=== PATIENT | male | born 1950 | race American Indian/Alaskan Native ===

== ENCOUNTER 2018-07-22 10:50 | Inpatient (IN) | payer MEDICARE ==
[2018-07-22] MEDS ORDERED: Sodium Chloride 0.9% 2,000 ML IV STA (11:13)
[2018-07-22] MEDS ORDERED: Morphine 4 mg/ml ISec IVP STA ×2 (11:14→13:00)
--- NOTE | 2018-07-22 11:27 | ED PDOC ---
Arrival/HPI - General Chief Complaint: Lower Extremity Problem/Injury Time Seen by Provider: 07/22/18 11:05 Historian: Patient - History of Present Illness Narrative History of Present Illness (Text): 07/22/18 11:05 Leonides Franks is a 67 year old male, with a past medical history of DM, HTN, Hyperlipidemia, factor V leiden (noncompliant w/ anticoagulants), DVT, and PE, who presents to the emergency department complaining of bilateral leg pain to the back of the upper thighs since 3 days. Pt describes pain as crampy. Patient informs pain worsened today and appreciates one episode of vomiting. Patient reports taking 100 mg of viagra on which he believes triggered leg pain. Patient denies fall, trauma, shortness of breath, chest pain, abdominal pain, diarrhea, dysuria, hematuria, scrotal pain, back pain, focal weakness, sensory deficits, or any other complaints. Time/Duration: < week (3 days) Symptom Onset: Sudden Symptom Course: Unchanged Activities at Onset: Light Context: Home Past Medical History - Provider Review Nursing Documentation Reviewed: Yes - Infectious Disease Hx of Infectious Diseases: None - Cardiac Hx Cardiac Disorders: Yes Hx Hypertension: Yes - Pulmonary Hx Respiratory Disorders: Yes - Neurological Hx Neurological Disorder: No - HEENT Hx HEENT Disorder: No - Renal Hx Renal Disorder: No - Endocrine/Metabolic Hx Diabetes Mellitus Type 2: Yes - Hematological/Oncological Hx Blood Disorders: No - Integumentary Hx Dermatological Disorder: No - Musculoskeletal/Rheumatological Hx Musculoskeletal Disorders: No Hx Falls: No - Gastrointestinal Hx Gastrointestinal Disorders: Yes Other/Comment: left groin hernia - Genitourinary/Gynecological Hx Genitourinary Disorders: No - Psychiatric Hx Psychophysiologic Disorder: No Hx Emotional Abuse: No Hx Physical Abuse: No Hx Substance Use: No - Surgical History Other/Comment: left groin hernia repair; sheldon filter for dvt - Anesthesia Hx Anesthesia Reactions: No Hx Malignant Hyperthermia: No - Suicidal Assessment Feels Threatened In Home Enviroment: No Family/Social History - Physician Review Nursing Documentation Reviewed: Yes Family/Social History: Other (factor 5) Smoking Status: Current Some Days Smoker Hx Alcohol Use: No Hx Substance Use: No Allergies/Home Meds Allergies/Adverse Reactions: Allergies No Known Allergies Allergy (Verified 03/15/16 18:10) Home Medications: Home Meds Medication Instructions Recorded Confirmed amLODIPine [Norvasc] 10 mg PO DAILY 12/29/15 07/22/18 metFORMIN [glucOPHAGE] 750 mg PO BID 12/29/15 07/22/18 Atorvastatin [Lipitor] 10 mg PO DIN 07/22/18 07/22/18 GlipiZIDE [Glipizide] 5 mg PO HS 07/22/18 07/22/18 Review of Systems - Review of Systems Eyes: absent: Vision Changes ENT: absent: Hearing Changes Respiratory: absent: SOB Cardiovascular: Calf Pain. absent: Chest Pain, Palpitations Gastrointestinal: absent: Abdominal Pain, Constipation, Diarrhea Genitourinary Male: absent: Dysuria, Hematuria, Other (no scrotal pain) Musculoskeletal: Myalgias (bilateral lower extremity pain to the back of upper thighs, described as "crampy"). absent: Back Pain, Neck Pain, Other (fall/trauma) Neurological: absent: Focal Weakness, Other (no weakness, numbness, or tingling) Physical Exam Temperature: Afebrile Blood Pressure: Normal Pulse: Regular Respiratory Rate: Normal Appearance: Positive for: Well-Appearing, Non-Toxic, Comfortable Pain Distress: None Mental Status: Positive for: Alert and Oriented X 3 - Systems Exam Head: Present: Atraumatic, Normocephalic Pupils: Present: PERRL Extroacular Muscles: Present: EOMI Conjunctiva: Present: Normal Mouth: Present: Moist Mucous Membranes Neck: Present: Normal Range of Motion Respiratory/Chest: Present: Clear to Auscultation, Good Air Exchange. No: Respiratory Distress, Accessory Muscle Use, Wheezes, Rales, Rhonchi Cardiovascular: Present: Regular Rate and Rhythm, Normal S1, S2. No: Murmurs, Rub, Gallop Abdomen: Present: Normal Bowel Sounds. No: Tenderness, Distention, Peritoneal Signs, Rebound, Guarding Genitourinary Male: Present: Circumcised Penis, Other (penis flaccid). No: Testicle Tenderness, Testicle Swelling Back: Present: Normal Inspection Upper Extremity: Present: Normal Inspection. No: Cyanosis, Edema Lower Extremity: Present: NORMAL PULSES (distal pulses intact), Normal ROM, Tenderness (tenderness to bilateral upper thighs), Other (Strength 5/5 lower extremities). No: Edema Neurological: Present: GCS=15, CN II-XII Intact, Speech Normal Skin: Present: Warm, Dry, Normal Color. No: Rashes Psychiatric: Present: Alert, Oriented x 3, Normal Insight, Normal Concentration Medical Decision Making ED Course and Treatment: 07/22/18 11:05 Impression: Patient is a 67 year old male, with a past medical history of factor V leiden (noncompliant w/ anticoagulants), DVT, and PE, who presents to the emergency department complaining of bilateral lower extremity pain to the back of the upper thighs since 3 days. Plan: -- Labs -- Chest X-Ray -- Morphine -- IV Fluids -- Toradol -- Urinalysis -- US DUPLEX Lower Extremities -- Reassess and disposition Prior Visits: Notes and results from previous visits were reviewed. Progress Notes: 07/22/18 13:01 Cxray negative 07/22/18 13:17 EKG shows NSR at 69bpm with new t wave inversions and depressions in II,III, avf and lateral leads from comparison in 2017 Ultrasound called and reports b/l dvt from groin to calf. Heparin bolus and drip ordered. CTA ordered to r/o PE. 2L IVF hydration infusing. 07/22/18 14:30 CTA Visualized portions of the inferior thyroid gland appear unremarkable. The mediastinal and hilar vascular structures appear within normal limits. Cardiomegaly. Extensive large bilateral pulmonary emboli involving upper, lower, and middle lobe pulmonary artery branches. No central pulmonary embolus identified. No focal consolidation. No pleural effusion. No pneumothorax. No suspicious pulmonary nodules measuring greater than 5 mm. Small hiatal hernia/distal esophageal wall thickening. Limited visualized portions of the upper abdomen appear grossly unremarkable. No acute osseous abnormality is detected. Impression: Extensive bilateral pulmonary emboli as above. No central pulmonary embolus identified. 07/22/18 14:30 Patient feeling better after heparin bolus and drip and additional morphine. Patient accepted by Dr. Wallace with hematology, pulmonary and cardiology consults placed. BP improved after IV hydration. 07/22/18 14:33 - RAD Interpretation Narrative RAD Interpretations (Text): 07/22/18 13:34 US Duplex Lower Extremity shows: IMPRESSION: Extensive bilateral DVT, greater on the right than the left, as described above. The patient may benefit from a CTA of the pulmonary arteries followed by abdomen and pelvis to evaluate the IVC and iliac vessels. Radiology Orders: 07/22/18 11:13 DUPLEX LOWER EXTRM VEIN BILAT [US] Stat Preschool Director: Radiologist - Medication Orders Current Medication Orders: Sodium Chloride (Sodium Chloride 0.9%) 2,000 mls @ 999 mls/hr IV .Q2H1M STA Stop: 07/22/18 13:13 Discontinued Medications Ketorolac Tromethamine (Toradol) 30 mg IVP STAT STA Stop: 07/22/18 11:15 Morphine Sulfate (Morphine) 4 mg IVP STAT STA Stop: 07/22/18 11:15 - Scribe Statement The provider has reviewed the documentation as recorded by the Scribe Yunier Whitt All medical record entries made by the Scribe were at my direction and personally dictated by me. I have reviewed the chart and agree that the record accurately reflects my personal performance of the history, physical exam, medical decision making, and the department course for this patient. I have also personally directed, reviewed, and agree with the discharge instructions and disposition. Disposition/Present on Arrival - Present on Arrival Any Indicators Present on Arrival: No History of DVT/PE: No History of Uncontrolled Diabetes: No Urinary Catheter: No History of Decub. Ulcer: No History Surgical Site Infection Following: None - Disposition Have Diagnosis and Disposition been Completed?: Yes Diagnosis: DVT (deep venous thrombosis), Pulmonary embolism Disposition: HOSPITALIZED Disposition Time: 13:19 Patient Plan: Admission Patient Problems: Current Active Problems Problem Status Onset DVT (deep venous thrombosis) Acute Pulmonary embolism Acute Condition: FAIR Referrals: Eros Hameed MD [Primary Care Provider] - Follow up with primary Forms: [employer] (Gabonese)
[2018-07-22 12:10] LABS: BASO # 0.03 K/mm3 (0.0-2.0); BASO % 0.3 % (0.0-3.0); EOS # 0.1 (0.0-0.7); EOS % 1.4 % (1.5-5.0); HEMOGLOBIN 13.1 g/dL (14.0-18.0); LYMPH # 3.4 (1.2-3.4); LYMPH % 33.3 % (22.0-35.0); MEAN CELL VOLUME 85.1 fl (80.0-105.0); MEAN CORPUSCULAR HEMOGLOBIN 27.8 pg (25.0-35.0); MEAN CORPUSCULAR HGB CONC 32.7 g/dl (31.0-37.0); MEAN PLATELET VOLUME 9.1 fl (7.0-11.0); MONO # 0.6 (0.1-0.6); MONO % 5.5 % (1.0-6.0); RBC 4.71 10^6/uL (3.5-6.1); RED CELL DISTRIBUTION WIDTH 12.8 % (11.5-14.5); WHITE BLOOD COUNT 10.3 10^3/uL (4.5-11.0)
[2018-07-22 12:30] LABS: ALB/GLOB RATIO 1.1 (1.1-1.8); ALBUMIN 4.4 g/dL (3.0-4.8); ALT/SGPT 22 U/L (7-56); AST/SGOT 22 U/L (17-59); BLOOD UREA NITROGEN 15 mg/dL (7-21); CALCIUM 9.3 mg/dL (8.4-10.5); GFR NON-AFRICAN AMERICAN 40; LIPASE 117 U/L (23-300)
[2018-07-22 12:31] LABS: TROPONIN I < 0.01 ng/mL
[2018-07-22 12:35] LABS: INR 1.04; PARTIAL THROMBOPLASTIN TIME 39.6 Seconds (26.9-38.3); PROTHROMBIN TIME 11.7 SECONDS (9.4-12.5)
[2018-07-22] MEDS ORDERED: Heparin25000 units/250ml 1/2NS 25,000 UNITS/250 ML BAG IV PRN ×2 (12:53→13:13)
[2018-07-22] MEDS ORDERED: Iohexol 350 MG/100 ML VIAL ONE (13:05)
--- NOTE | 2018-07-22 13:05 | RAD ---
Date of service: 07/22/2018 PROCEDURE: CHEST RADIOGRAPH, 1 VIEW HISTORY: vomiting,cp, hx of dvt COMPARISON: 01/30/2017 FINDINGS: LUNGS: Clear. PLEURA: No pneumothorax or pleural fluid seen. CARDIOVASCULAR: No aortic atherosclerotic calcification present. Normal. OSSEOUS STRUCTURES: No significant abnormalities. VISUALIZED UPPER ABDOMEN: Normal. OTHER FINDINGS: None. IMPRESSION: No active disease.
[2018-07-22 13:12] VITALS: BMI 25.7
--- NOTE | 2018-07-22 13:38 | US ---
HISTORY: Leg pain and swelling. Evaluate for DVT PHYSICIAN(S): Sam Montano MD. TECHNIQUE: Duplex sonography and color-flow Doppler with graded compression were used to evaluate the deep venous systems of both lower extremities. FINDINGS: There is acute hypoechoic occlusive thrombus in the right common femoral vein, right femoral vein, and proximal right profunda femoral vein. There is partially occlusive acute thrombus in the right popliteal vein. Acute hypoechoic thrombus is noted in the visualized right tibial veins. The right external iliac vein is patent. There is partially occlusive thrombus in the left common femoral vein. Acute on chronic DVT is noted in the left femoral vein. Post phlebitic changes are noted in the left popliteal vein. The left tibial veins are not well seen. IMPRESSION: Extensive bilateral DVT, greater on the right than the left, as described above. The patient may benefit from a CTA of the pulmonary arteries followed by abdomen and pelvis to evaluate the IVC and iliac vessels.
--- NOTE | 2018-07-22 14:24 | CT ---
Date of service: 07/22/2018 CTA chest PE protocol Indication: b/l dvt, hypoxia Technique: Contiguous axial images were obtained through the chest with intravenous contrast enhancement. Sagittal and coronal reconstructions were generated and reviewed. This CT exam was performed using 1 or more of the following dose reduction techniques: Automated exposure control, adjustment of the MAA and/or kV according to patient size, and/or use of iterative reconstruction technique. IV contrast: 100 mL Omnipaque 350 IV Radiation dose (DLP): 390.62 MGy-cm. Comparison: Chest x-ray performed 07/22/18 Findings: Visualized portions of the inferior thyroid gland appear unremarkable. The mediastinal and hilar vascular structures appear within normal limits. Cardiomegaly. Extensive large bilateral pulmonary emboli involving upper, lower, and middle lobe pulmonary artery branches. No central pulmonary embolus identified. No focal consolidation. No pleural effusion. No pneumothorax. No suspicious pulmonary nodules measuring greater than 5 mm. Small hiatal hernia/distal esophageal wall thickening. Limited visualized portions of the upper abdomen appear grossly unremarkable. No acute osseous abnormality is detected. Impression: Extensive bilateral pulmonary emboli as above. No central pulmonary embolus identified. Findings discussed with Dr. Milligan on 07/22/18 at 2:14 p.m.
--- NOTE | 2018-07-22 18:23 | CARD ---
APPROVED REPORT Date of service: 07/22/2018 EKG Measurement Heart [id number] <Conclusion> Poor data quality, interpretation may be adversely affected Normal sinus rhythm ST & T wave abnormality, consider inferior ischemia Abnormal ECG
[2018-07-22 19:40] LABS: TROPONIN I 0.01 ng/mL
[2018-07-22] MEDS: Morphine 2 mg/ml ISec IVP PRN (21:51)
[2018-07-22] MEDS ORDERED: Pneumococcal 23-Valent Vaccine IM ONE (22:18)
[2018-07-22] MEDS: Insulin Reg-MEDIUM-Coverage SC SCH (22:18)
--- NOTE | 2018-07-23 01:28 | CON ---
DATE OF CONSULTATION: 07/22/2018 PULMONARY CONSULTATION REFERRING PHYSICIAN: Dr. Wallace. REASON FOR CONSULTATION: Recurrent pulmonary embolism, DVT. HISTORY OF PRESENT ILLNESS: This is a 67-year-old gentleman with a history of hypertension, diabetes, hyperlipidemia, known history of factor V Leiden, apparently stopped his anticoagulation many years ago. 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 He was started on anticoagulation, presently lying in the bed, feels better, still short of breath, but no nausea and vomiting, no diarrhea, decreased leg swelling. PAST MEDICAL HISTORY: As per history of present illness, has a history left groin hernia. ALLERGIES: NONE KNOWN. 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 Denies any alcohol use. FAMILY HISTORY: Positive for factor V deficiency. MEDICATIONS: He is on hydralazine 10 mg q.i.d. p.r.n., Ecotrin 81 mg daily, metformin 750 mg twice a day, glipizide 5 mg at bedtime, getting IV heparin weight-based protocol, Lipitor 10 mg daily, morphine 2 mg 4 hours p.r.n., Norvasc 10 mg daily. REVIEW OF SYSTEMS: No headache, no rhinitis, no cough. He has a shortness of breath at present. No chest pain. Admit to have snoring, daytime sleepy. No nausea, no vomiting, no diarrhea. Has some leg pain. PHYSICAL EXAMINATION: GENERAL: No acute distress. VITAL SIGNS: Temperature is 98, heart rate 73, respiratory rate is 18, blood pressure 134/79, pulse ox 96% room air. HEENT: Moist mucous membrane. Crowded airway. NECK: Supple. No JVD. LUNGS: Have a fair airflow. HEART: S1 and S2. ABDOMEN: Soft, nontender, no organomegaly. EXTREMITIES: There is no edema. NEUROLOGIC: Awake, alert, and follows simple commands. LABORATORY DATA: Shows hemoglobin 13.1, hematocrit 40.1, WBC 10.3, platelet is 223. His PTT 143, INR 1.04. Sodium 142, potassium 4.1, chloride 107, bicarbonate 19, BUN 15, creatinine 1.7, glucose 231, calcium 9.3, phosphorus 6, magnesium 1.9, AST 22, ALT 22, alk phos is 80. LDH is 590, total protein 8.4, albumin 4.4, globulin 4, lipase 117. CTA of the chest shows extensive bilateral pulmonary embolism, also has venous Doppler of the lower extremities done, which shows extensive bilateral DVT, greater on the right than the left. Had an EKG done, which shows normal sinus rhythm, ST-T wave abnormalities. IMPRESSION: Recurrent of pulmonary embolism and deep venous thrombosis, history of factor V Leiden deficiency, history of diabetes, hypertension, may have component of chronic lung disease, suspected sleep apnea syndrome. PLAN: Case discussed with the patient and daughter at bedside. All the questions answered. Continue heparin weight-based protocol add Protonix 40 mg daily, inhaled bronchodilator, as the patient stopped smoking. Spoke about high risk for thromboembolic disease, need to take anticoagulation lifelong unless there is a big contraindication, out of bed to chair. We will get cardiac exam and also we will get echo to assess the RV function. Thank you and we will follow with you. Janeth Langley MD
--- NOTE | 2018-07-23 02:05 | CON ---
DATE: 07/22/2018 CONSULT SERVICE: Cardiology. REASON FOR CONSULTATION AND FOLLOWUP: Acute PE, history of DVT in the past, cardiac evaluation, and abnormal EKG. BRIEF CLINICAL HISTORY: This is a 67-year-old male, very noncompliant to the medications, came in with complaint of bilateral leg pain and swelling. Past history significant for diabetes, hypertension, hyperlipidemia, factor V Leiden deficiency, and history of DVT/PE. The patient underwent CT angiogram with extensive bilateral PE, so Cardiology consult was called. The patient denies any chest pain, shortness of breath, or any palpitations. PAST MEDICAL HISTORY: Significant for hematologic abnormality, factor V Leiden deficiency, history of DVT/PE in the past, history of hypertension, hyperlipidemia, obesity, and history of pulmonary embolism in 2010. CURRENT MEDICATIONS: The patient is supposed to take at home; amlodipine, atorvastatin, and metformin. SOCIAL HISTORY: Denies any smoking. Denies any history of alcohol abuse. PAST SURGICAL HISTORY: History of a [place] filter placed in the past, significant for DVT, history of left groin hernia repair in the past, questionable history of fracture in 2010. REVIEW OF SYSTEMS: As per HPI. PHYSICAL EXAMINATION: GENERAL: Height of the patient 5 feet 11 inches, weight of the patient 185 pounds, and body mass index 25.8 kg/m2. VITAL SIGNS: Temperature afebrile, heart rate 70, and blood pressure 134/79. HEENT: PERRLA. Extraocular muscles intact. NECK: Supple. No carotid bruits or thyromegaly. CHEST: Clear to auscultation. HEART: S1 and S2 regular. ABDOMEN: Soft. EXTREMITIES: Clubbing and cyanosis negative. LABORATORY DATA: WBC 10.3, hemoglobin 13.1, hematocrit 40.1, and platelet count 223. Chemistry shows sodium 142, potassium 4.1, chloride 107, bicarb 19, anion gap of 20, BUN 15, and creatinine 1.7. Random sugar 369. IMPRESSION: A 67-year-old male with a past medical history of diabetes, hypertension, hyperlipidemia, noncompliance with medications, history of deep venous thrombosis and pulmonary embolism in the past in 2010, factor V Leiden deficiency admitted with leg swelling, found to be acute pulmonary embolism. Ultrasound of the bilateral lower extremity shows extensive deep venous thrombosis greater in the right than the left as well as on the patient's CT angiogram. RECOMMENDATIONS: Start anticoagulation with heparin tomorrow. We will start Eliquis. Echo to assess LV function. Further recommendations depending upon the hospital course. Admitting EKG shows normal sinus, ST-T abnormality, it could be a LV with a strain pattern. So far, troponin remains negative. Follow serial CPK, troponin. Continue anticoagulation. Lipid profile, TSH, and hemoglobin A1c. The patient may get troponin positive because of RV strain with extensive DVT. We will follow with you. Thank you Dr. Wallace for providing us the opportunity in taking care of the patient, Leonides Franks. Janeth Connolly MD
[2018-07-23 02:26] LABS: URINE BILIRUBIN NEGATIVE (NEGATIVE); URINE BLOOD LARGE (NEGATIVE); URINE GLUCOSE (UA) NEGATIVE (NEGATIVE); URINE LEUKOCYTE ESTERASE NEGATIVE Leu/uL (NEGATIVE); URINE PROTEIN 30 mg/dL (<30 mg/dL); URINE UROBILINOGEN 0.2 E.U./dL (<1 E.U./dL)
[2018-07-23 02:29] LABS: URINE APPEARANCE SL CLOUDY (CLEAR); URINE COLOR YELLOW (YELLOW)
[2018-07-23 03:04] LABS: URINE BACTERIA SMALL /hpf; URINE EPITHELIAL CELLS 0 - 2 /hpf (0-5)
[2018-07-23 03:05] LABS: URINE AMORPHOUS SEDIMENT MODERATE /hpf; URINE WBC 0 - 2 /hpf (0-6)
[2018-07-23] MEDS: Insulin Reg-LOW-Coverage SC SCH ×4 (07:30→22:53)
[2018-07-23] MEDS: Arformoterol 15 mcg/2 ml Inh Sol IH SCH ×2 (07:41→19:38)
[2018-07-23] MEDS: Budesonide 0.5 mg/2 ml Inhal Susp UD IH SCH ×2 (07:41→19:38)
[2018-07-23 07:44] LABS: BASO # 0.03 K/mm3 (0.0-2.0); BASO % 0.3 % (0.0-3.0); EOS # 0.1 (0.0-0.7); EOS % 0.5 % (1.5-5.0); HEMOGLOBIN 11.2 g/dL (14.0-18.0); LYMPH # 3.2 (1.2-3.4); LYMPH % 32.1 % (22.0-35.0); MEAN CELL VOLUME 82.8 fl (80.0-105.0); MEAN CORPUSCULAR HEMOGLOBIN 26.8 pg (25.0-35.0); MEAN CORPUSCULAR HGB CONC 32.4 g/dl (31.0-37.0); MEAN PLATELET VOLUME 8.8 fl (7.0-11.0); MONO # 0.6 (0.1-0.6); MONO % 6.3 % (1.0-6.0); RBC 4.18 10^6/uL (3.5-6.1); WHITE BLOOD COUNT 9.9 10^3/uL (4.5-11.0)
[2018-07-23 08:05] LABS: TROPONIN I 0.02 ng/mL
[2018-07-23 08:09] LABS: CALCIUM 8.7 mg/dL (8.4-10.5)
[2018-07-23 09:18] LABS: CK-MB 1.1 ng/mL (0.0-3.6)
[2018-07-23] MEDS ORDERED: Sodium Chloride 0.9% 1,000 ML IV SCH (09:30)
--- NOTE | 2018-07-23 11:48 | CP.PCM.CON ---
History of Present Illness - History of Present Illness History of Present Illness: Nephrology Consultation Note: Assessment: Critical Acute DVT/PE non-olguric Acute Kidney Injury (N17.9) likely due to contrast nephropathy and hemodynamic Diabetic chronic Kidney Disease (E11.22) Hypertensive Chronic Kidney Disease (I12.9) Chronic Kidney Disease (N18.3) Stage 3 with ? mg proteinuria (R80.9) likely due to DM/HTN active smoker, Factor V leiden def, hx of PE in past microscopic hematuria, mild hyperkalemia/metabolic acidosis Plan No acute need for renal replacement therapy at this time. Hypertension control with meds as ordered. Maintain hemodynamics stable. Avoid hypotension. Patient not on ACEI/ARB due to recent DONN and hyperkalemia Monitor Input/Output, daily weights and renal function with basic metabolic pane l will start veltassa for few days may need urology eval in view of microscopic hematuria and smking/age status cardiology and pulmonary following Check urine analysis, spot protein/creatinine, albumin/creatinine ratio, urine c/s renal and bladder sonogram Check HIV/Hep B and Hep C serology, 25-OH vitamin D, iPTH, level. Dose meds/antibiotics for reduced GFR. Avoid fleets enema/magnesium based laxatives. Avoid nephrotoxins/NSAIDs/ iodinated contrast (unless needed emergently) Glycemic control. HOLD METFORMIN. smoking cessation reinforced. Further work up/management as per primary team Thanks for allowing me to participate in care of your patient. Will follow patient with you. Please call if any Qs. had d/w team Dr Jayodn Saldivar Office: [phone] Chief Complaint; leg pain Reason for consult: Acute Kidney Injury HPI: Pt is a 67 M with hx of diabetes Mellitus (since 2002) without known retinopathy, hypertension (recent year) hyperlipidemia active smoker, Factor V leiden def, hx of PE in past but apparently non compliant with anti-coagulants presented with complaints of leg swelling and pain along with SOB and found to have B/L DVT and extensive PE. renal consult for DONN management. pt feels better now. not aware about kidney disease in past Denies OTC/herbal meds or NSAIDs Noted recent iodinated contrast exposure. Noted obvious episodes of low BP (90s when came). active smoker. denies etoh or drugs at present ROS: Cardiovascular: No chest pain. Pulmonary: No shortness of breath Gastrointestinal: denies abdominal pain No nausea. No vomiting. Genitourinary: No pain while urinating. Denies blood in urine. All other negative except as mentioned in HPI Physical Examination: General Appearance: Comfortable, in no acute respiratory distress, co-operative . Vitals reviewed and noted as below Head; Atraumatic, normocephalic ENT: no ulcers no thrush. Tongue is midline. Oropharynx: no rash or ulcers. EYES: Pupils are equal, round and reactive to light accommodation. Eye muscles and extraocular movement intact. Sclera is anicteric. Neck; supple no lymphadenopathy, no thyromegaly or bruit Lungs: Normal respiratory rate/effort. Breath sounds bilateral reduced at bases Heart: Normal rate. s1s2 normal. No rub or gallop. Extremities: trace edema. No varicose veins Neurological: Patient is alert, awake and oriented to person, place and time. No focal deficit. Strength bilateral appropriate and equal Skin: Warm and dry. Normal turgor. No rash. Palpitation: Normal elasticity for age Abdomen: Abdomen is soft. Bowel sounds +. There is no abdominal tenderness, no guarding/rigidity no organomegaly Psych: normal insight and normal affect/mood MSK: no joint tenderness or swelling. Digits and nails normal, no deformity : kidney or bladder not palpable Labs/imaging reviewed. Past medical history, past surgical history, family history, social history, allergy reviewed and noted as below Family hx: no hx of CKD. Rest non-contributory UA SG <1.005 and moderate blood with RBCs and few bacteria Past Patient History - Infectious Disease Hx of Infectious Diseases: None - Past Social History Smoking Status: Light Smoker < 10 Cigarettes Daily - CARDIAC Hx Cardiac Disorders: Yes Hx Hypercholesterolemia: Yes Hx Hypertension: Yes Hx Peripheral Edema: Yes (ble +1 pitting) Other/Comment: dvt both legs, pe both lungs, sheldon filter inserted in 2002, developed blood clots to legs and lungs 2010, and this admission 07/22/18. Pt has factor V leiden - PULMONARY Hx Respiratory Disorders: Yes (pe both lungs) - NEUROLOGICAL Hx Neurological Disorder: Yes Other/Comment: feet cool to touch - HEENT Hx HEENT Problems: Yes (eyeglasses) - RENAL Hx Chronic Kidney Disease: No - ENDOCRINE/METABOLIC Hx Endocrine Disorders: Yes Hx Diabetes Mellitus Type 2: Yes - HEMATOLOGICAL/ONCOLOGICAL Hx Blood Disorders: No - INTEGUMENTARY Hx Dermatological Problems: Yes Other/Comment: dry toenails left ft - MUSCULOSKELETAL/RHEUMATOLOGICAL Hx Falls: No - GASTROINTESTINAL Hx Gastrointestinal Disorders: Yes Other/Comment: left groin hernia sx 1994 - GENITOURINARY/GYNECOLOGICAL Hx Genitourinary Disorders: No - PSYCHIATRIC Hx Substance Use: No - SURGICAL HISTORY Hx Surgeries: Yes Hx Cardiac Catheterization: Yes Other/Comment: left groin hernia repair 1994 sheldon filter for dvt 2002 - ANESTHESIA Hx Anesthesia Reactions: No Hx Malignant Hyperthermia: No Meds Allergies/Adverse Reactions: Allergies Allergy/AdvReac Type Severity Reaction Status Date / Time No Known Allergies Allergy Verified 03/15/16 18:10 - Medications Medications: Current Medications Amlodipine Besylate (Norvasc) 10 mg PO DAILY [facility] Last Admin: 07/23/18 09:32 Dose: 10 mg Apixaban (Eliquis) 10 mg PO BID [facility]; Protocol Stop: 07/29/18 18:01 Last Admin: 07/23/18 10:51 Dose: Not Given Apixaban (Eliquis) 5 mg PO BID [facility]; Protocol Arformoterol Tartrate (Brovana) 15 mcg IH [id number] [facility] Last Admin: 07/23/18 07:41 Dose: 15 mcg Aspirin (Ecotrin) 81 mg PO DAILY [facility] Last Admin: 07/23/18 09:32 Dose: 81 mg Atorvastatin Calcium (Lipitor) 10 mg PO DIN [facility] Last Admin: 07/22/18 21:50 Dose: 10 mg Budesonide (Pulmicort Respules) 0.5 mg IH [id number] [facility] Last Admin: 07/23/18 07:41 Dose: 0.5 mg Glipizide (Glucotrol) 5 mg PO HS [facility] Last Admin: 07/22/18 21:51 Dose: 5 mg Hydralazine HCl (Apresoline) 10 mg PO QID PRN PRN Reason: for sbp>160 Heparin Sodium/Sodium Chloride (Heparin 35230 Units/250ml 1/2 Normal Saline) 25 ,000 units in 250 mls @ 15.105 mls/hr IV .[id number] PRN; Protocol PRN Reason: ADJUST RATE PER PROTOCOL Stop: 07/23/18 12:00 Last Titration: 07/23/18 05:28 Dose: 12 units/kg/hr, 10.07 mls/hr Sodium Chloride (Sodium Chloride 0.45%) 1,000 mls @ 80 mls/hr IV .[id number] STEPHAN Sodium Chloride (Sodium Chloride 0.9%) 1,000 mls @ 50 mls/hr IV .Q20H STEPHAN Stop: 07/24/18 23:59 Insulin Human Regular (Humulin R Low) 0 units SC ACHS STEPHAN; Protocol Morphine Sulfate (Morphine) 2 mg IVP Q4H PRN PRN Reason: Pain, moderate (4-7) Last Admin: 07/22/18 21:51 Dose: 2 mg Patiromer (Veltassa) 8.4 gm PO DAILY [facility] Stop: 07/26/18 10:01 Last Admin: 07/23/18 11:20 Dose: 8.4 gm Results - Vital Signs Recent Vital Signs: Last Vital Signs Temp 98.1 F 07/23/18 06:00 Pulse 72 07/23/18 06:00 Resp 20 07/23/18 06:00 BP 142/87 07/23/18 09:32 Pulse Ox 98 07/23/18 06:00 - Labs Result Diagrams: 07/23/18 07:30 07/23/18 07:30 Labs: Laboratory Results - last 24 hr 07/22/18 07/22/18 07/22/18 11:57 11:57 11:57 WBC 10.3 RBC 4.71 Hgb 13.1 L Hct 40.1 L MCV 85.1 MCH 27.8 MCHC 32.7 RDW 12.8 Plt Count 223 MPV 9.1 Neut % (Auto) 59.5 Lymph % (Auto) 33.3 [place] % (Auto) 5.5 Eos % (Auto) 1.4 L Baso % (Auto) 0.3 Lymph # (Auto) 3.4 [place] # (Auto) 0.6 Eos # (Auto) 0.1 Baso # (Auto) 0.03 Absolute Neuts (auto) 6.12 PT 11.7 INR 1.04 APTT 39.6 H D-Dimer, Quantitative 4032 H Sodium 142 Potassium 4.1 Chloride 107 Carbon Dioxide 19 L Anion Gap 20 BUN 15 Creatinine 1.7 H Est GFR ( Amer) 49 Est GFR (Non-Af Amer) 40 POC Glucose (mg/dL) Random Glucose 369 H* D Calcium 9.3 Phosphorus 6.0 H Magnesium 1.9 Total Bilirubin 0.8 AST 22 ALT 22 Alkaline Phosphatase 80 Lactate Dehydrogenase Total Creatine Kinase 140 CK-MB (CK-2) CK-MB (CK-2) % Troponin I < 0.01 Total Protein 8.4 H Albumin 4.4 Globulin 4.0 Albumin/Globulin Ratio 1.1 Triglycerides Cholesterol LDL Cholesterol Direct HDL Cholesterol Lipase 117 TSH 3rd Generation Urine Color Urine Appearance Urine pH Ur Specific Gentry Urine Protein Urine Glucose (UA) Urine Ketones Urine Blood Urine Nitrate Urine Bilirubin Urine Urobilinogen Ur Leukocyte Esterase Urine RBC Urine WBC Ur Epithelial Cells Amorphous Sediment Urine Bacteria Blood Type Blood Type Confirm Antibody Screen BBK History Checked 07/22/18 07/22/18 07/22/18 11:57 12:32 15:22 WBC RBC Hgb Hct MCV MCH MCHC RDW Plt Count MPV Neut % (Auto) Lymph % (Auto) [place] % (Auto) Eos % (Auto) Baso % (Auto) Lymph # (Auto) [place] # (Auto) Eos # (Auto) Baso # (Auto) Absolute Neuts (auto) PT INR APTT D-Dimer, Quantitative Sodium Potassium Chloride Carbon Dioxide Anion Gap BUN Creatinine Est GFR ( Amer) Est GFR (Non-Af Amer) POC Glucose (mg/dL) 281 H Random Glucose Calcium Phosphorus Magnesium Total Bilirubin AST ALT Alkaline Phosphatase Lactate Dehydrogenase Total Creatine Kinase CK-MB (CK-2) CK-MB (CK-2) % Troponin I Total Protein Albumin Globulin Albumin/Globulin Ratio Triglycerides Cholesterol LDL Cholesterol Direct HDL Cholesterol Lipase TSH 3rd Generation Urine Color Urine Appearance Urine pH Ur Specific Gentry Urine Protein Urine Glucose (UA) Urine Ketones Urine Blood Urine Nitrate Urine Bilirubin Urine Urobilinogen Ur Leukocyte Esterase Urine RBC Urine WBC Ur Epithelial Cells Amorphous Sediment Urine Bacteria Blood Type B POSITIVE Blood Type Confirm B POSITIVE Antibody Screen Negative BBK History Checked No verified bt 07/22/18 07/22/18 07/22/18 16:41 19:15 20:00 WBC RBC Hgb Hct MCV MCH MCHC RDW Plt Count MPV Neut % (Auto) Lymph % (Auto) [place] % (Auto) Eos % (Auto) Baso % (Auto) Lymph # (Auto) [place] # (Auto) Eos # (Auto) Baso # (Auto) Absolute Neuts (auto) PT INR APTT 143.8 H* D-Dimer, Quantitative Sodium Potassium Chloride Carbon Dioxide Anion Gap BUN Creatinine Est GFR ( Amer) Est GFR (Non-Af Amer) POC Glucose (mg/dL) 231 H Random Glucose Calcium Phosphorus Magnesium Total Bilirubin AST ALT Alkaline Phosphatase Lactate Dehydrogenase 590 Total Creatine Kinase 177 CK-MB (CK-2) CK-MB (CK-2) % Troponin I 0.01 Total Protein Albumin Globulin Albumin/Globulin Ratio Triglycerides Cholesterol LDL Cholesterol Direct HDL Cholesterol Lipase TSH 3rd Generation Urine Color Urine Appearance Urine pH Ur Specific Gentry Urine Protein Urine Glucose (UA) Urine Ketones Urine Blood Urine Nitrate Urine Bilirubin Urine Urobilinogen Ur Leukocyte Esterase Urine RBC Urine WBC Ur Epithelial Cells Amorphous Sediment Urine Bacteria Blood Type Blood Type Confirm Antibody Screen BBK History Checked 07/22/18 07/23/18 07/23/18 21:22 02:00 04:00 WBC RBC Hgb Hct MCV MCH MCHC RDW Plt Count MPV Neut % (Auto) Lymph % (Auto) [place] % (Auto) Eos % (Auto) Baso % (Auto) Lymph # (Auto) [place] # (Auto) Eos # (Auto) Baso # (Auto) Absolute Neuts (auto) PT INR APTT 99.0 H D-Dimer, Quantitative Sodium Potassium Chloride Carbon Dioxide Anion Gap BUN Creatinine Est GFR ( Amer) Est GFR (Non-Af Amer) POC Glucose (mg/dL) 110 Random Glucose Calcium Phosphorus Magnesium Total Bilirubin AST ALT Alkaline Phosphatase Lactate Dehydrogenase Total Creatine Kinase CK-MB (CK-2) CK-MB (CK-2) % Troponin I Total Protein Albumin Globulin Albumin/Globulin Ratio Triglycerides Cholesterol LDL Cholesterol Direct HDL Cholesterol Lipase TSH 3rd Generation Urine Color Yellow Urine Appearance Sl cloudy Urine pH 5.0 Ur Specific [place] <= 1.005 Urine Protein 30 H Urine Glucose (UA) Negative Urine Ketones Negative Urine Blood Large H Urine Nitrate Negative Urine Bilirubin Negative Urine Urobilinogen 0.2 Ur Leukocyte Esterase Negative Urine RBC 5 - 10 H Urine WBC 0 - 2 Ur Epithelial Cells 0 - 2 Amorphous Sediment Moderate Urine Bacteria Small Blood Type Blood Type Confirm Antibody Screen BBK History Checked 07/23/18 07/23/18 07/23/18 07:30 07:30 07:30 WBC 9.9 RBC 4.18 Hgb 11.2 L Hct 34.6 L MCV 82.8 MCH 26.8 MCHC 32.4 RDW 13.0 Plt Count 194 MPV 8.8 Neut % (Auto) 60.8 Lymph % (Auto) 32.1 [place] % (Auto) 6.3 H Eos % (Auto) 0.5 L Baso % (Auto) 0.3 Lymph # (Auto) 3.2 [place] # (Auto) 0.6 Eos # (Auto) 0.1 Baso # (Auto) 0.03 Absolute Neuts (auto) 6.04 PT INR APTT D-Dimer, Quantitative Sodium 136 Potassium 5.2 H Chloride 109 H Carbon Dioxide 19 L Anion Gap 14 BUN 28 H Creatinine 2.1 H Est GFR ( Amer) 38 Est GFR (Non-Af Amer) 32 POC Glucose (mg/dL) Random Glucose 80 Calcium 8.7 Phosphorus 4.7 H Magnesium 1.9 Total Bilirubin 0.6 AST 24 ALT 25 Alkaline Phosphatase 70 Lactate Dehydrogenase 597 Total Creatine Kinase 235 H CK-MB (CK-2) 1.1 CK-MB (CK-2) % Cancelled Troponin I 0.02 D Total Protein 7.8 Albumin 4.0 Globulin 3.8 Albumin/Globulin Ratio 1.0 L Triglycerides 119 Cholesterol 179 LDL Cholesterol Direct 98 HDL Cholesterol 33 Lipase TSH 3rd Generation 2.84 Urine Color Urine Appearance Urine pH Ur Specific [place] Urine Protein Urine Glucose (UA) Urine Ketones Urine Blood Urine Nitrate Urine Bilirubin Urine Urobilinogen Ur Leukocyte Esterase Urine RBC Urine WBC Ur Epithelial Cells Amorphous Sediment Urine Bacteria Blood Type Blood Type Confirm Antibody Screen BBK History Checked 07/23/18 07/23/18 07:34 11:11 WBC RBC Hgb Hct MCV MCH MCHC RDW Plt Count MPV Neut % (Auto) Lymph % (Auto) [place] % (Auto) Eos % (Auto) Baso % (Auto) Lymph # (Auto) [place] # (Auto) Eos # (Auto) Baso # (Auto) Absolute Neuts (auto) PT INR APTT D-Dimer, Quantitative Sodium Potassium Chloride Carbon Dioxide Anion Gap BUN Creatinine Est GFR ( Amer) Est GFR (Non-Af Amer) POC Glucose (mg/dL) 90 127 H Random Glucose Calcium Phosphorus Magnesium Total Bilirubin AST ALT Alkaline Phosphatase Lactate Dehydrogenase Total Creatine Kinase CK-MB (CK-2) CK-MB (CK-2) % Troponin I Total Protein Albumin Globulin Albumin/Globulin Ratio Triglycerides Cholesterol LDL Cholesterol Direct HDL Cholesterol Lipase TSH 3rd Generation Urine Color Urine Appearance Urine pH Ur Specific [place] Urine Protein Urine Glucose (UA) Urine Ketones Urine Blood Urine Nitrate Urine Bilirubin Urine Urobilinogen Ur Leukocyte Esterase Urine RBC Urine WBC Ur Epithelial Cells Amorphous Sediment Urine Bacteria Blood Type Blood Type Confirm Antibody Screen BBK History Checked
[2018-07-23] MEDS: Insulin Reg-MEDIUM-Coverage SC SCH (11:52)
--- NOTE | 2018-07-23 12:06 | PN ---
DATE: 07/23/2018 REASON FOR CONSULTATION AND FOLLOWUP: Acute DVT?PE PHYSICAL EXAMINATION: HEENT: PERRLA. Extraocular muscles intact. NECK: Supple. No carotid bruits. No thyromegaly. LABORATORY DATA: BUN 26, creatinine 2.1. IMPRESSION: A 67-year-old male with past medical history significant for factor V Leiden deficiency, deep vein thrombosis, pulmonary embolism in 2010, status post inferior vena cava filter, was on Coumadin, stopped himself because being followed at [facility], but difficult for him after [facility] closed. So, the patient stopped taking. Admitted here with shortness of breath, found to be in bilateral deep vein thrombosis and pulmonary embolism, currently on heparin. Ultrasound of bilateral legs showed extensive deep vein thrombosis, greater than the right than left. CT chest also revealed extensive bilateral pulmonary embolism. History of renal insufficiency with creatinine clearance of 32 mL an hour, history of diabetes noncompliance with the medication, troponin remains negative, so far no evidence of acute myocardial infarction. Troponin remains flat at 0.01, 0.01, 0.02. RECOMMENDATIONS: Echo to assess LV function, we will discontinue heparin two hours after the first dose of Eliquis p.o. b.i.d. for one week followed by 5 mg p.o. daily. The patient has been scheduled a stress test because of risk factor of an abnormal EKG in 4 to 6 weeks. Discussed with the patient and paper and fixture is given to Cardiology, [place], to schedule a stress test in 4 to 6 weeks as outpatient. The patient's lipid profile shows total cholesterol of 179, LDL is 98, and HDL 32. TSH is 2.84, hemoglobin A1c pending. Further recommendations will depend on hospital course. We will follow with you. The patient . On admission, the patient had a creatinine of 1.7, today it is 2.1. We will continue gentle hydration to prevent any acute renal failure. Echo to assess LV function. We will continue hydration to prevent acute kidney injury secondary to contrast-induced nephropathy. Repeat the blood workup in the morning. Also get CBC, the patient is on anticoagulation. Monitor renal function. Thank you, Dr. Wallace, for providing us the opportunity in taking care of Leonides Franks. Janeth Connolly MD MTDKavitha
[2018-07-23 12:37] LABS: PH,URINE 5.5 (4.7-8.0); URINE APPEARANCE CLEAR (CLEAR); URINE BILIRUBIN NEGATIVE (NEGATIVE); URINE BLOOD LARGE (NEGATIVE); URINE COLOR YELLOW (YELLOW); URINE GLUCOSE (UA) NEGATIVE (NEGATIVE); URINE LEUKOCYTE ESTERASE NEGATIVE Leu/uL (NEGATIVE); URINE PROTEIN TRACE mg/dL (<30 mg/dL); URINE UROBILINOGEN 0.2 E.U./dL (<1 E.U./dL)
[2018-07-23 12:42] LABS: URINE AMORPHOUS SEDIMENT FEW /hpf; URINE BACTERIA MOD /hpf; URINE RBC 25 - 30 /hpf (0-2)
--- NOTE | 2018-07-23 12:53 | CARD ---
APPROVED REPORT Date of service: 07/23/2018 EXAM: Two-dimensional and M-mode echocardiogram with Doppler and color Doppler. INDICATION Pulmonary Embolism RVFX 2D DIMENSIONS Left Atrium (2D)3.8 (1.6-4.0cm)IVSd1.2 (0.7-1.1cm) LVDd4.4 (3.9-5.9cm)PWd1.1 (0.7-1.1cm) LVDs3.0 (2.5-4.0cm)FS (%) 31.4 % LVEF (%)59.4 (>50%) M-Mode DIMENSIONS Aortic Root2.70 (2.2-3.7cm)Aortic Cusp Exc.1.40 (1.5-2.0cm) Aortic Valve AoV Peak Oflnteya512.0cm/Jess Peak GR.8mmHg Mitral Valve MV E Dhhqucqp27.7cm/sMV A Hnbzyvdt98.5cm/sE/A ratio0.5 TDI E/Lateral E'0.0E/Medial E'0.0 Tricuspid Valve TR Peak [id number] [id number] Peak Gr.16mmHg [id number] LEFT VENTRICLE The left ventricle is normal size. There is borderline to mild concentric left ventricular hypertrophy. The left ventricular function is normal.EF-55-60% There is normal LV segmental wall motion. Transmitral Doppler flow pattern is Grade III-reversible restrictive diastolic dysfunction. No left ventricle thrombus noted on this study. There is no ventricular septal defect visualized. There is no left ventricular aneurysm. There is no mass noted in the left ventricle. RIGHT VENTRICLE The right ventricle is normal size. There is normal right ventricular wall thickness. The right ventricular systolic function is normal. ATRIA The left atrium size is normal. The right atrium size is normal. The interatrial septum is intact with no evidence for an atrial septal defect. AORTIC VALVE The aortic valve is thickened but opens well. There is trace aortic regurgitation. There is no aortic valvular stenosis. There is no aortic valvular vegetation. MITRAL VALVE The mitral valve is thickened but opens well. Mitral regurgitation is Mild. There is no mitral valve stenosis. There is no evidence of mitral valve prolapse. TRICUSPID VALVE The tricuspid valve leaflets are thickened , but open well. There is mild tricuspid regurgitation.RVSP-26 mmof hg. There is no tricuspid valve stenosis. There is no tricuspid valve prolapse or vegetation. PULMONIC VALVE The pulmonary valve is normal in structure. There is mild pulmonic valvular regurgitation. There is no pulmonic valvular stenosis. GREAT VESSELS The aortic root is normal in size. The ascending aorta is normal in size. The pulmonary artery is normal. The IVC is normal in size and collapses >50% with inspiration. PERICARDIAL EFFUSION There is no pleural effusion. There is no pericardial effusion. <Conclusion> Normal chamber Size. EF-55-60% Trace AR. Mitral regurgitation is Mild There is mild tricuspid regurgitation.RVSP-26 mmof hg. There is mild pulmonic valvular regurgitation. The IVC is normal in size and collapses >50% with inspiration. There is no pericardial effusion.
--- NOTE | 2018-07-23 13:20 | PN ---
DATE: 07/23/2018 PULMONARY PROGRESS NOTE REFERRING PHYSICIAN: Reynold Wallace MD SUBJECTIVE: The patient is seen lying in bed. No acute distress. No overnight events reported. No headache, rhinitis, cough, shortness of breath, chest pain, abdominal tirado, nausea, vomiting, diarrhea, leg pain or leg swelling reported. PHYSICAL EXAMINATION: GENERAL: No acute distress. VITAL SIGNS: Blood pressure 142/87, pulse 71, temperature 98.1, oxygen saturation 98% on room air. HEENT: Moist mucous membrane. Crowded airway. NECK: Supple. No JVD. LUNGS: Fair airflow bilaterally. CARDIOVASCULAR: S1 and S2. ABDOMEN: Soft, nontender, no distention, no organomegaly. EXTREMITIES: No bilateral lower extremity edema. NEUROLOGIC: Awake, alert, verbal, following commands. MEDICATIONS: Reviewed. Norvasc 10 mg daily; Eliquis 10 mg twice a day, first 14 doses and then 5 mg twice a day; Brovana 15 mcg inhalation every 12 hours; aspirin 81 mg daily; Lipitor 10 mg at dinner; Pulmicort 0.5 mg inhalation every 12 hours; glipizide 5 mg at bedtime; hydralazine 10 mg four times a day p.r.n.; Humulin R sliding scale a.c. and at bedtime, morphine sulphate 2 mg IV push every 4 hours p.r.n.; Veltassa 8.4 grams daily; sodium chloride 0.45% 1000 mL at 80 mL/hour. LABORATORY DATA: Reviewed. WBC 9.9, RBC 4.18, hemoglobin 1.2, hematocrit 34.6, and platelet count 194. APTT 64.5. Sodium 136, potassium 5.2, chloride 109, carbon dioxide 19, anion gap 14, BUN 20, creatinine 2.1, GFR 38, POC glucose 90, random glucose 80, hemoglobin A1C 6.7, calcium 8.7, phosphorus 4.7, magnesium 1.9, total bilirubin 0.6, AST 24, ALT 25, alkaline phosphatase 70, lactate dehydrogenase 597, total creatine kinase 235, CKMB 1.1, troponin 0.02, total protein 7.8, albumin 4.0, globulin 3.8, albumin-globulin ratio 1.0, triglycerides 190, cholesterol 179, LDL cholesterol 98, HDL cholesterol 33, TSH 2.84. Urinalysis; urine protein 13, urine blood large, urine RBC 5-10. Echocardiogram report pending. IMPRESSION AND PLAN: Recurrent pulmonary embolism, deep venous thrombosis, history of factor V Leiden deficiency, diabetes mellitus, hypertension, may have chronic lung disease, suspected sleep apnea syndrome. Continue anticoagulation, inhaled bronchodilators. We will followup on the echocardiogram when available, out of bed to chair. This patient was seen and examined with Dr. Langley. Discussed assessment and plan as described above. The patient was seen and examined with April Navas, nurse practitioner. Discussed assessment and plan as described above. Thank you for this consult and we will follow with you. April Navas APN Janeth Langley MD GRIFFIN
--- NOTE | 2018-07-23 14:58 | HP ---
DATE OF EXAM: 07/22/2018 CHIEF COMPLAINT: A 67-year-old male who came in to the hospital with bilateral leg pain and also mild dyspnea. HISTORY OF PRESENT ILLNESS: This is a 67-year-old male with history of DVT in the past, factor V Leiden deficiency, diabetes, hypertension, hypercholesterolemia who came in with bilateral leg pain. 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 Patient also could not get the medication refilled and he continues without medicines for these years. Apparently, came in with bilateral leg pain, it is getting worse. Also, he feels that his pain got worse and worse and then start to having also mild short of breath. No fever. No nausea. No vomiting. No chills. No other complaints. PAST MEDICAL HISTORY: As I mentioned; bilateral DVT and PE, factor V Leiden deficiency, hypertension, hypercholesterolemia, and diabetes type 2. 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 He smokes light cigarettes, 10 cigarettes per day. He drinks socially. He does not use any substances. FAMILY HISTORY: Noncontributory. HOME MEDICATIONS: Metformin 850 twice a day, Norvasc 10, glipizide 5 at bedtime, and Lipitor 10. REVIEW OF SYSTEMS: As I mentioned; he does feel leg pain on and off. It seems it got worse now and he came to the ER. He also denied any rectal bleeding. Denied any blood in the urine. Denied any chest pain in the past. Rest of the review of system is negative. PHYSICAL EXAMINATION: VITAL SIGNS: Temperature is 97.7, heart rate 69, blood pressure 151/87, respirations 18, saturation 98% on room air. HEAD AND NECK: Normal. No JVD. No thyromegaly. CHEST: Clear bilateral. CARDIAC: First sound and second sound normal. No murmur, rub, or gallop. ABDOMEN: Soft and nontender. EXTREMITIES: No edema. There is tenderness in the calf area. NEUROLOGIC: Normal. LABORATORY DATA: White count 10.3, hemoglobin 15.9, hematocrit 40.1, platelets 223. Chemistry; sodium 142, potassium 4.1, chloride 107, bicarb 19, BUN 15, creatinine 1.7. Blood sugar 369. Calcium 9.3. Phosphorous 6. Magnesium 1.9. Liver function test is normal. Total protein 8.4. Troponin x2 is negative. Bilateral lower extremity and bilateral DVT. CT angio shows extensive bilateral Pes. IMPRESSION AND PLAN: A 67-year-old male came in with leg pain found to have bilateral deep venous thrombosis and extensive pulmonary embolism. We will admit the patient for IV heparin. We will get Pulmonary consult with Dr. Langley, Cardiology consult, Hematology consult, and Dr. Collazo for factor V deficiency. We will continue current medications. IV Heparin will be switched to Eliquis. Also, we are going to get a Renal consult with Dr. Jaydon Saldivar. We will continue to follow up. We will start the patient on IV fluids also. Continue current therapy. Reynold Wallace MD
[2018-07-23] MEDS: Sodium Chloride 0.45% 1,000 ML IV SCH ×2 (17:45→21:28)
[2018-07-23 17:47] LABS: HEPATITIS B SURFACE AG Negative (NEGATIVE)
[2018-07-23 17:52] LABS: HEPATITIS B CORE AB NEGATIVE (NEGATIVE)
[2018-07-23 18:05] LABS: HEPATITIS C ANTIBODY NEGATIVE (NEGATIVE)
[2018-07-23] MEDS: Morphine 2 mg/ml ISec IVP PRN (21:53)
--- NOTE | 2018-07-23 23:42 | CP.PCM.CON ---
<YamileTae - Last Filed: 07/23/18 23:59> History of Present Illness - History of Present Illness History of Present Illness: Heme/Onc consult: Yamile PGY - 2 Reason for consult: Factor V Leiden Consult requested by: Dr. Wallace 67 M with pertinent medical hx of Factor V leiden non-compliant with medications, PEs, and DVTs in the past, presents with bilateral leg pain that got worse after he took Viagra. ED work up revealed bilateral PE and patient was placed on Eliquis. Patient states that the pain has gotten better now and he feels no shortness of breath or chest pain. Review of systems: 12 point ROS obtained and negative except as per HPI Surgical Hx: L groin hernia repair; sheldon IVC filter Medical Hx: DM, HTN, HLD, Factor V Leiden, Hx PE, Hx DVT Allergies: NKDA Social Hx: Smoker; denies EtOH and Illicits Home Meds: Reviewed, as per MAR Family Hx: Non-contributory Past Patient History - Infectious Disease Hx of Infectious Diseases: None - Past Social History Smoking Status: Light Smoker < 10 Cigarettes Daily - CARDIAC Hx Cardiac Disorders: Yes Hx Hypercholesterolemia: Yes Hx Hypertension: Yes Hx Peripheral Edema: Yes (ble +1 pitting) Other/Comment: dvt both legs, pe both lungs, sheldon filter inserted in 2002, developed blood clots to legs and lungs 2010, and this admission 07/22/18. Pt has factor V leiden - PULMONARY Hx Respiratory Disorders: Yes (pe both lungs) - NEUROLOGICAL Hx Neurological Disorder: Yes Other/Comment: feet cool to touch - HEENT Hx HEENT Problems: Yes (eyeglasses) - RENAL Hx Chronic Kidney Disease: No - ENDOCRINE/METABOLIC Hx Endocrine Disorders: Yes Hx Diabetes Mellitus Type 2: Yes - HEMATOLOGICAL/ONCOLOGICAL Hx Blood Disorders: No - INTEGUMENTARY Hx Dermatological Problems: Yes Other/Comment: dry toenails left ft - MUSCULOSKELETAL/RHEUMATOLOGICAL Hx Falls: No - GASTROINTESTINAL Hx Gastrointestinal Disorders: Yes Other/Comment: left groin hernia sx 1994 - GENITOURINARY/GYNECOLOGICAL Hx Genitourinary Disorders: No - PSYCHIATRIC Hx Substance Use: No - SURGICAL HISTORY Hx Surgeries: Yes Hx Cardiac Catheterization: Yes Other/Comment: left groin hernia repair 1994 sheldon filter for dvt 2002 - ANESTHESIA Hx Anesthesia Reactions: No Hx Malignant Hyperthermia: No Meds Allergies/Adverse Reactions: Allergies Allergy/AdvReac Type Severity Reaction Status Date / Time No Known Allergies Allergy Verified 03/15/16 18:10 - Medications Medications: Current Medications Amlodipine Besylate (Norvasc) 10 mg PO DAILY PENDING SALE TO [facility] Last Admin: 07/23/18 09:32 Dose: 10 mg Apixaban (Eliquis) 10 mg PO BID PENDING SALE TO [facility]; Protocol Stop: 07/29/18 18:01 Last Admin: 07/23/18 17:33 Dose: 10 mg Apixaban (Eliquis) 5 mg PO BID PENDING SALE TO [facility]; Protocol Arformoterol Tartrate (Brovana) 15 mcg IH [id number] PENDING SALE TO [facility] Last Admin: 07/23/18 19:38 Dose: 15 mcg Aspirin (Ecotrin) 81 mg PO DAILY PENDING SALE TO [facility] Last Admin: 07/23/18 09:32 Dose: 81 mg Atorvastatin Calcium (Lipitor) 10 mg PO DIN PENDING SALE TO [facility] Last Admin: 07/23/18 17:33 Dose: 10 mg Budesonide (Pulmicort Respules) 0.5 mg IH [id number] PENDING SALE TO [facility] Last Admin: 07/23/18 19:38 Dose: 0.5 mg Glipizide (Glucotrol) 5 mg PO HS PENDING SALE TO [facility] Last Admin: 07/23/18 21:28 Dose: 5 mg Hydralazine HCl (Apresoline) 10 mg PO QID PRN PRN Reason: for sbp>160 Sodium Chloride (Sodium Chloride 0.45%) 1,000 mls @ 80 mls/hr IV .[id number] PENDING SALE TO [facility] Last Admin: 07/23/18 21:28 Dose: 80 mls/hr Insulin Human Regular (Humulin R Low) 0 units SC [facility]; Protocol Last Admin: 07/23/18 22:53 Dose: Not Given Morphine Sulfate (Morphine) 2 mg IVP Q4H PRN PRN Reason: Pain, moderate (4-7) Last Admin: 07/23/18 21:53 Dose: 2 mg Patiromer (Veltassa) 8.4 gm PO DAILY PENDING SALE TO [facility] Stop: 07/26/18 10:01 Last Admin: 07/23/18 11:20 Dose: 8.4 gm Physical Exam - Constitutional Appears: Well - Head Exam Head Exam: ATRAUMATIC, NORMAL INSPECTION, NORMOCEPHALIC - Eye Exam Eye Exam: EOMI, Normal appearance, PERRL Pupil Exam: NORMAL ACCOMODATION, PERRL - ENT Exam ENT Exam: Mucous Membranes Moist, Normal Exam - Neck Exam Neck exam: Positive for: Normal Inspection - Respiratory Exam Respiratory Exam: Clear to Auscultation Bilateral, NORMAL BREATHING PATTERN - Cardiovascular Exam Cardiovascular Exam: REGULAR RHYTHM - GI/Abdominal Exam GI & Abdominal Exam: Normal Bowel Sounds, Soft. absent: Tenderness - Extremities Exam Extremities exam: Positive for: normal inspection - Back Exam Back exam: NORMAL INSPECTION - Neurological Exam Neurological exam: Alert, CN II-XII Intact, Normal Gait, Oriented x3, Reflexes Normal - Psychiatric Exam Psychiatric exam: Normal Affect, Normal Mood - Skin Skin Exam: Dry, Intact, Normal Color, Warm Results - Vital Signs Recent Vital Signs: Last Vital Signs Temp 97.3 F L 07/23/18 18:00 Pulse 90 07/23/18 22:00 Resp 18 07/23/18 18:00 BP 114/65 07/23/18 18:00 Pulse Ox 98 07/23/18 06:00 - Labs Result Diagrams: 07/23/18 07:30 07/23/18 07:30 Labs: Laboratory Results - last 24 hr 07/22/18 07/23/18 07/23/18 15:22 02:00 04:00 WBC RBC Hgb Hct MCV MCH MCHC RDW Plt Count MPV Neut % (Auto) Lymph % (Auto) [place] % (Auto) Eos % (Auto) Baso % (Auto) Lymph # (Auto) [place] # (Auto) Eos # (Auto) Baso # (Auto) Absolute Neuts (auto) APTT 99.0 H Sodium Potassium Chloride Carbon Dioxide Anion Gap BUN Creatinine Est GFR ( Amer) Est GFR (Non-Af Amer) POC Glucose (mg/dL) 281 H Random Glucose Hemoglobin A1c Calcium Phosphorus Magnesium Total Bilirubin AST ALT Alkaline Phosphatase Lactate Dehydrogenase Total Creatine Kinase CK-MB (CK-2) CK-MB (CK-2) % Troponin I Total Protein Albumin Globulin Albumin/Globulin Ratio Triglycerides Cholesterol LDL Cholesterol Direct HDL Cholesterol TSH 3rd Generation Urine Color Yellow Urine Appearance Sl cloudy Urine pH 5.0 Ur Specific [place] <= 1.005 Urine Protein 30 H Urine Glucose (UA) Negative Urine Ketones Negative Urine Blood Large H Urine Nitrate Negative Urine Bilirubin Negative Urine Urobilinogen 0.2 Ur Leukocyte Esterase Negative Urine RBC 5 - 10 H Urine WBC 0 - 2 Ur Epithelial Cells 0 - 2 Amorphous Sediment Moderate Urine Bacteria Small Ur Random Creatinine Hep Bs Antigen Hep Bs Antibody Hep B Core IgM Ab Hepatitis C Antibody HIV 1&2 Antibody Screen 07/23/18 07/23/18 07/23/18 07:30 07:30 07:30 WBC 9.9 RBC 4.18 Hgb 11.2 L Hct 34.6 L MCV 82.8 MCH 26.8 MCHC 32.4 RDW 13.0 Plt Count 194 MPV 8.8 Neut % (Auto) 60.8 Lymph % (Auto) 32.1 [place] % (Auto) 6.3 H Eos % (Auto) 0.5 L Baso % (Auto) 0.3 Lymph # (Auto) 3.2 [place] # (Auto) 0.6 Eos # (Auto) 0.1 Baso # (Auto) 0.03 Absolute Neuts (auto) 6.04 APTT Sodium 136 Potassium 5.2 H Chloride 109 H Carbon Dioxide 19 L Anion Gap 14 BUN 28 H Creatinine 2.1 H Est GFR ( Amer) 38 Est GFR (Non-Af Amer) 32 POC Glucose (mg/dL) Random Glucose 80 Hemoglobin A1c 6.7 H Calcium 8.7 Phosphorus 4.7 H Magnesium 1.9 Total Bilirubin 0.6 AST 24 ALT 25 Alkaline Phosphatase 70 Lactate Dehydrogenase 597 Total Creatine Kinase 235 H CK-MB (CK-2) 1.1 CK-MB (CK-2) % Cancelled Troponin I 0.02 D Total Protein 7.8 Albumin 4.0 Globulin 3.8 Albumin/Globulin Ratio 1.0 L Triglycerides 119 Cholesterol 179 LDL Cholesterol Direct 98 HDL Cholesterol 33 TSH 3rd Generation Urine Color Urine Appearance Urine pH Ur Specific [place] Urine Protein Urine Glucose (UA) Urine Ketones Urine Blood Urine Nitrate Urine Bilirubin Urine Urobilinogen Ur Leukocyte Esterase Urine RBC Urine WBC Ur Epithelial Cells Amorphous Sediment Urine Bacteria Ur Random Creatinine Hep Bs Antigen Hep Bs Antibody Hep B Core IgM Ab Hepatitis C Antibody HIV 1&2 Antibody Screen 07/23/18 07/23/18 07/23/18 07:30 07:34 11:11 WBC RBC Hgb Hct MCV MCH MCHC RDW Plt Count MPV Neut % (Auto) Lymph % (Auto) [place] % (Auto) Eos % (Auto) Baso % (Auto) Lymph # (Auto) [place] # (Auto) Eos # (Auto) Baso # (Auto) Absolute Neuts (auto) APTT Sodium Potassium Chloride Carbon Dioxide Anion Gap BUN Creatinine Est GFR ( Amer) Est GFR (Non-Af Amer) POC Glucose (mg/dL) 90 127 H Random Glucose Hemoglobin A1c Calcium Phosphorus Magnesium Total Bilirubin AST ALT Alkaline Phosphatase Lactate Dehydrogenase Total Creatine Kinase CK-MB (CK-2) CK-MB (CK-2) % Troponin I Total Protein Albumin Globulin Albumin/Globulin Ratio Triglycerides Cholesterol LDL Cholesterol Direct HDL Cholesterol TSH 3rd Generation 2.84 Urine Color Urine Appearance Urine pH Ur Specific [place] Urine Protein Urine Glucose (UA) Urine Ketones Urine Blood Urine Nitrate Urine Bilirubin Urine Urobilinogen Ur Leukocyte Esterase Urine RBC Urine WBC Ur Epithelial Cells Amorphous Sediment Urine Bacteria Ur Random Creatinine Hep Bs Antigen Hep Bs Antibody Hep B Core IgM Ab Hepatitis C Antibody HIV 1&2 Antibody Screen 07/23/18 07/23/18 07/23/18 11:30 11:30 11:30 WBC RBC Hgb Hct MCV MCH MCHC RDW Plt Count MPV Neut % (Auto) Lymph % (Auto) [place] % (Auto) Eos % (Auto) Baso % (Auto) Lymph # (Auto) [place] # (Auto) Eos # (Auto) Baso # (Auto) Absolute Neuts (auto) APTT 64.5 H Sodium Potassium Chloride Carbon Dioxide Anion Gap BUN Creatinine Est GFR ( Amer) Est GFR (Non-Af Amer) POC Glucose (mg/dL) Random Glucose Hemoglobin A1c Calcium Phosphorus Magnesium Total Bilirubin AST ALT Alkaline Phosphatase Lactate Dehydrogenase Total Creatine Kinase CK-MB (CK-2) CK-MB (CK-2) % Troponin I Total Protein Albumin Globulin Albumin/Globulin Ratio Triglycerides Cholesterol LDL Cholesterol Direct HDL Cholesterol TSH 3rd Generation Urine Color Urine Appearance Urine pH Ur Specific [place] Urine Protein Urine Glucose (UA) Urine Ketones Urine Blood Urine Nitrate Urine Bilirubin Urine Urobilinogen Ur Leukocyte Esterase Urine RBC Urine WBC Ur Epithelial Cells Amorphous Sediment Urine Bacteria Ur Random Creatinine Hep Bs Antigen Negative Hep Bs Antibody Negative Hep B Core IgM Ab Negative Hepatitis C Antibody Negative HIV 1&2 Antibody Screen 07/23/18 07/23/18 07/23/18 11:30 12:00 12:00 WBC RBC Hgb Hct MCV MCH MCHC RDW Plt Count MPV Neut % (Auto) Lymph % (Auto) [place] % (Auto) Eos % (Auto) Baso % (Auto) Lymph # (Auto) [place] # (Auto) Eos # (Auto) Baso # (Auto) Absolute Neuts (auto) APTT Sodium Potassium Chloride Carbon Dioxide Anion Gap BUN Creatinine Est GFR ( Amer) Est GFR (Non-Af Amer) POC Glucose (mg/dL) Random Glucose Hemoglobin A1c Calcium Phosphorus Magnesium Total Bilirubin AST ALT Alkaline Phosphatase Lactate Dehydrogenase Total Creatine Kinase CK-MB (CK-2) CK-MB (CK-2) % Troponin I Total Protein Albumin Globulin Albumin/Globulin Ratio Triglycerides Cholesterol LDL Cholesterol Direct HDL Cholesterol TSH 3rd Generation Urine Color Yellow Urine Appearance Clear Urine pH 5.5 Ur Specific [place] 1.010 Urine Protein Trace H Urine Glucose (UA) Negative Urine Ketones Negative Urine Blood Large H Urine Nitrate Negative Urine Bilirubin Negative Urine Urobilinogen 0.2 Ur Leukocyte Esterase Negative Urine RBC 25 - 30 H Urine WBC 1 - 3 Ur Epithelial Cells None Amorphous Sediment Few Urine Bacteria Mod Ur Random Creatinine 146 Hep Bs Antigen Hep Bs Antibody Hep B Core IgM Ab Hepatitis C Antibody HIV 1&2 Antibody Screen Negative 07/23/18 07/23/18 16:24 21:24 WBC RBC Hgb Hct MCV MCH MCHC RDW Plt Count MPV Neut % (Auto) Lymph % (Auto) [place] % (Auto) Eos % (Auto) Baso % (Auto) Lymph # (Auto) [place] # (Auto) Eos # (Auto) Baso # (Auto) Absolute Neuts (auto) APTT Sodium Potassium Chloride Carbon Dioxide Anion Gap BUN Creatinine Est GFR ( Amer) Est GFR (Non-Af Amer) POC Glucose (mg/dL) 130 H 181 H Random Glucose Hemoglobin A1c Calcium Phosphorus Magnesium Total Bilirubin AST ALT Alkaline Phosphatase Lactate Dehydrogenase Total Creatine Kinase CK-MB (CK-2) CK-MB (CK-2) % Troponin I Total Protein Albumin Globulin Albumin/Globulin Ratio Triglycerides Cholesterol LDL Cholesterol Direct HDL Cholesterol TSH 3rd Generation Urine Color Urine Appearance Urine pH Ur Specific [place] Urine Protein Urine Glucose (UA) Urine Ketones Urine Blood Urine Nitrate Urine Bilirubin Urine Urobilinogen Ur Leukocyte Esterase Urine RBC Urine WBC Ur Epithelial Cells Amorphous Sediment Urine Bacteria Ur Random Creatinine Hep Bs Antigen Hep Bs Antibody Hep B Core IgM Ab Hepatitis C Antibody HIV 1&2 Antibody Screen Assessment & Plan - Assessment and Plan (Free Text) Assessment: 67 M with pertinent medical history of Factor V Leiden and previous DVT/pe's presents with bilateral PE but no saddle PE Plan - Obtain Factor V Leiden levels to determine homo or hetero zygous - Agree with Eliquis and ECHO - Obtain hypercoagulabe work up including Protein C, Protein S, Anti- phospholipid, Anti thrombin, and Factor V Leiden THank you for this interesting consult; we will follow with you <Paulette Collazo - Last Filed: 07/24/18 16:08> Meds - Medications Medications: Current Medications Amlodipine Besylate (Norvasc) 10 mg PO DAILY PENDING SALE TO [facility] Last Admin: 07/24/18 09:00 Dose: 10 mg Apixaban (Eliquis) 10 mg PO BID PENDING SALE [facility]; Protocol Stop: 07/29/18 18:01 Last Admin: 07/24/18 09:00 Dose: 10 mg Apixaban (Eliquis) 5 mg PO BID PENDING SALE TO [facility]; Protocol Arformoterol Tartrate (Brovana) 15 mcg IH [id number] PENDING SALE [facility] Last Admin: 07/24/18 07:26 Dose: 15 mcg Aspirin (Ecotrin) 81 mg PO DAILY PENDING SALE [facility] Last Admin: 07/24/18 09:00 Dose: 81 mg Atorvastatin Calcium (Lipitor) 10 mg PO DIN PENDING SALE [facility] Last Admin: 07/23/18 17:33 Dose: 10 mg Budesonide (Pulmicort Respules) 0.5 mg IH [id number] PENDING SALE TO [facility] Last Admin: 07/24/18 07:26 Dose: 0.5 mg Glipizide (Glucotrol) 5 mg PO HS PENDING SALE [facility] Last Admin: 07/23/18 21:28 Dose: 5 mg Guaifenesin/Dextromethorphan (Mucinex-Dm 600-30 Mg) 1 tab PO BID PENDING SALE TO [facility] Hydralazine HCl (Apresoline) 10 mg PO QID PRN PRN Reason: for sbp>160 Sodium Chloride (Sodium Chloride 0.45%) 1,000 mls @ 80 mls/hr IV .[id number] PENDING SALE TO [facility] Insulin Human Regular (Humulin R Low) 0 units SC ACHS PENDING SALE TO [facility]; Protocol Last Admin: 07/24/18 12:34 Dose: 1 unit Morphine Sulfate (Morphine) 2 mg IVP Q4H PRN PRN Reason: Pain, moderate (4-7) Last Admin: 07/24/18 14:02 Dose: 2 mg Sodium Bicarbonate (Sodium Bicarbonate Tab) 650 mg PO BID PENDING SALE [facility] Last Admin: 07/24/18 11:45 Dose: 650 mg Results - Vital Signs Recent Vital Signs: Last Vital Signs Temp 98.2 F 07/24/18 13:16 Pulse 96 H 07/24/18 13:16 Resp 19 07/24/18 13:16 BP 107/74 07/24/18 13:16 Pulse Ox 97 07/24/18 06:00 - Labs Result Diagrams: 07/24/18 07:00 07/24/18 07:00 Labs: Laboratory Results - last 24 hr 07/23/18 07/23/18 07/23/18 11:30 11:30 11:30 WBC RBC Hgb Hct MCV MCH MCHC RDW Plt Count MPV Neut % (Auto) Lymph % (Auto) [place] % (Auto) Eos % (Auto) Baso % (Auto) Lymph # (Auto) [place] # (Auto) Eos # (Auto) Baso # (Auto) Absolute Neuts (auto) Sodium Potassium Chloride Carbon Dioxide Anion Gap BUN Creatinine Est GFR ( Amer) Est GFR (Non-Af Amer) POC Glucose (mg/dL) Random Glucose Calcium Phosphorus Magnesium 25-OH Vitamin D Total PTH Intact Whole Molec Ur Random Creatinine U Random Total Protein Urine Total Volume Microalb/Creat Ratio Hep Bs Antigen Negative Hep Bs Antibody Negative Hep B Core IgM Ab Negative Hepatitis C Antibody Negative HIV 1&2 Antibody Screen Negative 07/23/18 07/23/18 07/23/18 11:30 12:00 12:00 WBC RBC Hgb Hct MCV MCH MCHC RDW Plt Count MPV Neut % (Auto) Lymph % (Auto) [place] % (Auto) Eos % (Auto) Baso % (Auto) Lymph # (Auto) [place] # (Auto) Eos # (Auto) Baso # (Auto) Absolute Neuts (auto) Sodium Potassium Chloride Carbon Dioxide Anion Gap BUN Creatinine Est GFR ( Amer) Est GFR (Non-Af Amer) POC Glucose (mg/dL) Random Glucose Calcium Phosphorus Magnesium 25-OH Vitamin D Total PTH Intact Whole Molec 143 H Ur Random Creatinine 153 U Random Total Protein 270 H Urine Total Volume 13.0 Microalb/Creat Ratio 85 H Hep Bs Antigen Hep Bs Antibody Hep B Core IgM Ab Hepatitis C Antibody HIV 1&2 Antibody Screen 07/23/18 07/23/18 07/24/18 16:24 21:24 07:00 WBC 7.6 D RBC 4.16 Hgb 11.2 L Hct 34.3 L MCV 82.5 MCH 26.9 MCHC 32.7 RDW 13.1 Plt Count 179 MPV 8.4 Neut % (Auto) 62.5 Lymph % (Auto) 27.4 [place] % (Auto) 8.0 H Eos % (Auto) 1.7 Baso % (Auto) 0.4 Lymph # (Auto) 2.1 [place] # (Auto) 0.6 Eos # (Auto) 0.1 Baso # (Auto) 0.03 Absolute Neuts (auto) 4.77 Sodium Potassium Chloride Carbon Dioxide Anion Gap BUN Creatinine Est GFR ( Amer) Est GFR (Non-Af Amer) POC Glucose (mg/dL) 130 H 181 H Random Glucose Calcium Phosphorus Magnesium 25-OH Vitamin D Total PTH Intact Whole [place]olec Ur Random Creatinine U Random Total Protein Urine Total Volume Microalb/Creat Ratio Hep Bs Antigen Hep Bs Antibody Hep B Core IgM Ab Hepatitis C Antibody HIV 1&2 Antibody Screen 07/24/18 07/24/18 07/24/18 07:00 07:00 07:27 WBC RBC Hgb Hct MCV MCH MCHC RDW Plt Count MPV Neut % (Auto) Lymph % (Auto) [place] % (Auto) Eos % (Auto) Baso % (Auto) Lymph # (Auto) [place] # (Auto) Eos # (Auto) Baso # (Auto) Absolute Neuts (auto) Sodium 135 Potassium 4.5 Chloride 108 H Carbon Dioxide 18 L Anion Gap 14 BUN 31 H Creatinine 2.0 H Est GFR ( Amer) 40 Est GFR (Non-Af Amer) 33 POC Glucose (mg/dL) 103 Random Glucose 100 Calcium 8.8 Phosphorus 5.0 H Magnesium 2.2 25-OH Vitamin D Total 20.9 L PTH Intact Whole Molec Ur Random Creatinine U Random Total Protein Urine Total Volume Microalb/Creat Ratio Hep Bs Antigen Hep Bs Antibody Hep B Core IgM Ab Hepatitis C Antibody HIV 1&2 Antibody Screen 07/24/18 11:32 WBC RBC Hgb Hct MCV MCH MCHC RDW Plt Count MPV Neut % (Auto) Lymph % (Auto) [place] % (Auto) Eos % (Auto) Baso % (Auto) Lymph # (Auto) [place] # (Auto) Eos # (Auto) Baso # (Auto) Absolute Neuts (auto) Sodium Potassium Chloride Carbon Dioxide Anion Gap BUN Creatinine Est GFR ( Amer) Est GFR (Non-Af Amer) POC Glucose (mg/dL) 152 H Random Glucose Calcium Phosphorus Magnesium 25-OH Vitamin D Total PTH Intact Whole [place] Ur Random Creatinine U Random Total Protein Urine Total Volume Microalb/Creat Ratio Hep Bs Antigen Hep Bs Antibody Hep B Core IgM Ab Hepatitis C Antibody HIV 1&2 Antibody Screen Attending/Attestation - Attestation I have personally seen and examined this patient.: Yes I have fully participated in the care of the patient.: Yes I have reviewed all pertinent clinical information: Yes
[2018-07-24] MEDS: Sodium Chloride 0.45% 1,000 ML IV SCH ×2 (05:21→19:00)
[2018-07-24] MEDS: Arformoterol 15 mcg/2 ml Inh Sol IH SCH ×2 (07:26→19:30)
[2018-07-24] MEDS: Budesonide 0.5 mg/2 ml Inhal Susp UD IH SCH ×2 (07:26→19:31)
[2018-07-24 07:30] LABS: BASO # 0.03 K/mm3 (0.0-2.0); BASO % 0.4 % (0.0-3.0); EOS # 0.1 (0.0-0.7); EOS % 1.7 % (1.5-5.0); HEMOGLOBIN 11.2 g/dL (14.0-18.0); LYMPH # 2.1 (1.2-3.4); LYMPH % 27.4 % (22.0-35.0); MEAN CELL VOLUME 82.5 fl (80.0-105.0); MEAN CORPUSCULAR HEMOGLOBIN 26.9 pg (25.0-35.0); MEAN CORPUSCULAR HGB CONC 32.7 g/dl (31.0-37.0); MEAN PLATELET VOLUME 8.4 fl (7.0-11.0); MONO # 0.6 (0.1-0.6); RBC 4.16 10^6/uL (3.5-6.1); RED CELL DISTRIBUTION WIDTH 13.1 % (11.5-14.5); WHITE BLOOD COUNT 7.6 10^3/uL (4.5-11.0)
[2018-07-24] MEDS: Insulin Reg-LOW-Coverage SC SCH ×4 (07:55→23:20)
[2018-07-24 07:56] LABS: CALCIUM 8.8 mg/dL (8.4-10.5)
--- NOTE | 2018-07-24 11:21 | US ---
Date of service: 07/23/2018 PROCEDURE: HISTORY: DONN COMPARISON: TECHNIQUE: FINDINGS: The right and left kidney measure 11.7 and 11.9 centimeters respectively. No hydronephrosis, calculus or mass is observed. The renal cortices are homogeneous. IMPRESSION: Unremarkable exam.
--- NOTE | 2018-07-24 11:23 | US ---
Date of service: 07/23/2018 PROCEDURE: HISTORY: microscpic hematuria COMPARISON: TECHNIQUE: FINDINGS: No bladder wall thickening or bladder calculus is observed. Bilateral ureteral jets. Small postvoid residual of 25 cc. Prostate gland is enlarged measuring 4.6 x 5.7 x 5.6 centimeters. Correlate with PSA levels. IMPRESSION: As above.
[2018-07-24] MEDS: Morphine 2 mg/ml ISec IVP PRN ×2 (14:02→23:23)
--- NOTE | 2018-07-24 15:08 | CP.PCM.PCO ---
Physician Communication Note - Physician Communication Note Physician Communication Note: PT rec TCU
--- NOTE | 2018-07-24 15:30 | PN ---
DATE: 07/24/2018 REASON FOR CONSULTATION AND FOLLOWUP: Acute DVT, PE. SUBJECTIVE: The patient denies chest pain, shortness of breath, or any palpitations. PHYSICAL EXAMINATION: GENERAL: Not in apparent distress. VITAL SIGNS: Temperature afebrile, heart rate 84, blood pressure 133/85. HEENT: PERRLA. Intact. NECK: Supple. No carotid bruits or thyromegaly. CHEST: Clear to auscultation. HEART: S1, S2, regular. ABDOMEN: Soft. EXTREMITIES: Clubbing, cyanosis negative. Complains of mild leg pain. LABORATORY DATA: WBC 7.6, hemoglobin 11, hematocrit 34.3, platelet count 179. Chemistries shows sodium 135, potassium 4.5, chloride 108, carbon dioxide 18, anion gap of 14, BUN 31, creatinine 2. Hemoglobin A1c 6.7. TSH 2.84. Total cholesterol 179, LDL 98, HDL 33. IMPRESSION: A 67-year-old male with a past medical history significant for factor V Leiden deficiency, deep vein thrombosis, history of pulmonary embolism in 2010, status post inferior vena cava filter, was on Coumadin, stopped by himself because of being [facility] [place], according to the patient, the clinic closed and then the patient stopped, admitted here with bilateral deep venous thrombosis and pulmonary embolism, started on heparin and now changed to Eliquis. Troponin remains flat. Yesterday, the patient had an echocardiography done that revealed normal chamber size, ejection fraction of 36 with trace aortic regurgitation, mild mitral regurgitation, mild tricuspid regurgitation, right ventricular systolic pressure of 26, no evidence of pulmonary hypertension. The patient has renal insufficiency. RECOMMENDATIONS: Avoid nephrotoxic medication, aggressive control of blood pressure. Started Eliquis 10 mg p.o. b.i.d. for 7 days followed by 5 mg p.o. from 2017. Because of multiple disorders, coronary artery disease, stress test as an outpatient. Arrangement has been made for a stress test in 4 to 6 weeks. We will discontinue telemetry. Continue hematology workup. Continue gentle hydration. We will follow with you. Avoid nephrotoxic medications. Blood pressures have been controlled with amlodipine and p.r.n. hydralazine. Follow up renal function. Continue hydration. Thank you, Dr. Wallace, for providing us the opportunity in taking care of the patient, Leonides Franks. Janeth Connolly MD [facility] # [id number]
--- NOTE | 2018-07-24 15:34 | US ---
HISTORY: Leg pain and swelling. Follow-up bilateral lower extremity DVT PHYSICIAN(S): Sam Montano MD. TECHNIQUE: Duplex sonography and color-flow Doppler with graded compression were used to evaluate the deep venous systems of both lower extremities. FINDINGS: Hypoechoic, occlusive thrombus is noted in the right common femoral vein and throughout the right femoral vein. There has been significant recanalization of the right popliteal vein. Acute DVT is noted in the visualized right tibial veins. Hypoechoic, occlusive thrombus is noted in the left common femoral vein. The thrombus extends into the left femoral vein and proximal left profunda femoral vein. There is some recanalization noted in the left popliteal vein. Occlusive DVT is noted in the visualized left tibial veins. IMPRESSION: Extensive bilateral lower extremity acute thrombus as described above. There has been partial recanalization in the popliteal veins
--- NOTE | 2018-07-24 15:37 | PN ---
DATE: 04/26/2018 PULMONARY PROGRESS NOTE REFERRING PHYSICIAN: Reynold Wallace MD SUBJECTIVE: The patient is seen lying in bed, no acute distress. No overnight events reported. No headache, rhinitis, cough, shortness of breath, chest pain, abdominal tirado, nausea, vomiting, or diarrhea reported. The patient does report having lower extremity pain and difficulty with ambulation. States that at home, he has stairs which he needs to go up and reports being unable to navigate those stairs at this time. OBJECTIVE: GENERAL: No acute distress. VITAL SIGNS: Blood pressure 107/74, pulse 96, temperature 98.2, oxygen saturation 97% on room air. HEENT: Moist mucous membranes. Crowded airway. NECK: Supple. No JVD. LUNGS: Fair airflow bilaterally. CARDIOVASCULAR: S1 and S2. ABDOMEN: Soft, nontender. No distention. No organomegaly. EXTREMITIES: Trace bilateral lower extremity edema. NEUROLOGIC: Awake, alert, verbal, following commands. MEDICATIONS: Reviewed. Norvasc 10 mg daily; Eliquis 10 mg twice a day until 07/29/2018, then 5 mg twice a day starting 07/30/2018; Brovana 15 mcg inhalation every 12 hours; aspirin 81 mg daily; Lipitor 10 mg at dinner; Pulmicort 0.5 mg inhalation every 12 hours; glipizide 5 mg at bedtime; hydralazine 10 mg four times a day p.r.n., systolic BP greater than 160; Humulin R sliding scale a.c. and at bedtime; morphine 10 mg every 4 hours p.r.n.; and sodium bicarbonate 650 mg p.o. twice a day. LABORATORY DATA: Reviewed. WBC 7.6, RBC 4.16, hemoglobin 11.2, hematocrit 34.3, and platelets 179. Sodium 135, potassium 4.5, chloride 108, carbon dioxide 18, anion gap 14, BUN 31, creatinine 2.0, GFR 40, POC glucose 103, random glucose 100, calcium 8.8, phosphorus 5.0, magnesium 2.2, vitamin D 20.9. Urinalysis shows urine protein trace, urine blood large, urine RBCs 25-30. Hepatitis B antigen negative. Hepatitis B antibody negative. Hepatitis B IgM antibody negative. Hepatitis C antibody negative. HIV-1 and 2 negative. Renal ultrasound unremarkable. Bladder ultrasound shows small postvoid residual 25 mL, prostate gland enlarged. Echocardiogram; ejection fraction 55% to 60%, trace aortic regurgitation, mild mitral regurgitation, mild tricuspid regurgitation, RVSP 26, mild pulmonic valvular regurgitation. IMPRESSION AND PLAN: Recurrent pulmonary embolism, deep venous thrombosis, history of Factor V Leiden deficiency, diabetes mellitus, hypertension, suspected chronic lung disease, suspected sleep apnea syndrome. The patient currently on oral anticoagulation, continue inhaled bronchodilators. We will place the patient on Mucinex 600 mg twice a day. The patient with elevated BUN and creatinine will restart IV fluids, lab work will have to be drawn in the morning, may need to readjust Eliquis if BUN and creatinine do not recover. Recommend physical therapy for this patient, to be evaluated for possible TRCU placement. The patient was seen and examined with Dr. Langley. Discussed assessment and plan as described above. The patient was seen and examined with Yosef Chen, nurse practitioner. Discussed assessment and plan as described above. Thank you for this consult. We will follow with you. April Navas APN Janeth Langley MD [facility]
--- NOTE | 2018-07-24 16:16 | CP.PCM.PN ---
Subjective - Date & Time of Evaluation Date of Evaluation: 07/24/18 Time of Evaluation: 16:15 - Subjective Subjective: Nephrology Consultation Note: Assessment: Critical Acute DVT/PE non-olguric Acute Kidney Injury (N17.9) likely due to contrast nephropathy and hemodynamic Diabetic chronic Kidney Disease (E11.22) Hypertensive Chronic Kidney Disease (I12.9) Chronic Kidney Disease (N18.3) Stage 3 with ? mg proteinuria (R80.9) likely due to DM/HTN active smoker, Factor V leiden def, hx of PE in past microscopic hematuria, mild hyperkalemia/metabolic acidosis Plan No acute need for renal replacement therapy at this time. Hypertension control with meds as ordered. Maintain hemodynamics stable. Avoid hypotension. Patient not on ACEI/ARB due to recent DONN and hyperkalemia Monitor Input/Output, daily weights and renal function with basic metabolic panel will start sodium bicarb. d/c IVF. weekly vit D added may need urology eval in view of microscopic hematuria and smoking/age status cardiology and pulmonary following Check urine analysis, spot protein/creatinine, albumin/creatinine ratio, urine c/s renal and bladder sonogram Check HIV/Hep B and Hep C serology, 25-OH vitamin D, iPTH, level. Dose meds/antibiotics for reduced GFR. Avoid fleets enema/magnesium based laxatives. Avoid nephrotoxins/NSAIDs/ iodinated contrast (unless needed emergently) Glycemic control. HOLD METFORMIN. smoking cessation reinforced. Further work up/management as per primary team Thanks for allowing me to participate in care of your patient. Will follow patient with you. Please call if any Qs. had d/w team Dr Jaydon Saldivar Office: [phone] Chief Complaint; leg pain Reason for consult: Acute Kidney Injury HPI: Pt is a 67 M with hx of diabetes Mellitus (since 2002) without known retinopathy, hypertension (recent year) hyperlipidemia active smoker, Factor V leiden def, hx of PE in past but apparently non compliant with anti-coagulants presented with complaints of leg swelling and pain along with SOB and found to have B/L DVT and extensive PE. renal consult for DONN management. pt feels better now. not aware about kidney disease in past Denies OTC/herbal meds or NSAIDs Noted recent iodinated contrast exposure. Noted obvious episodes of low BP (90s when came). active smoker. denies etoh or drugs at present ROS: Cardiovascular: No chest pain. Pulmonary: No shortness of breath Gastrointestinal: denies abdominal pain No nausea. No vomiting. Genitourinary: No pain while urinating. Denies blood in urine. All other negative except as mentioned in HPI Physical Examination: General Appearance: Comfortable, in no acute respiratory distress, co-operative . Vitals reviewed and noted as below Head; Atraumatic, normocephalic ENT: no ulcers no thrush. Tongue is midline. Oropharynx: no rash or ulcers. EYES: Pupils are equal, round and reactive to light accommodation. Eye muscles and extraocular movement intact. Sclera is anicteric. Neck; supple no lymphadenopathy, no thyromegaly or bruit Lungs: Normal respiratory rate/effort. Breath sounds bilateral reduced at bases Heart: Normal rate. s1s2 normal. No rub or gallop. Extremities: 1+ edema. No varicose veins Neurological: Patient is alert, awake and oriented to person, place and time. No focal deficit. Strength bilateral appropriate and equal Skin: Warm and dry. Normal turgor. No rash. Palpitation: Normal elasticity for age Abdomen: Abdomen is soft. Bowel sounds +. There is no abdominal tenderness, no guarding/rigidity no organomegaly Psych: normal insight and normal affect/mood MSK: no joint tenderness or swelling. Digits and nails normal, no deformity : kidney or bladder not palpable Labs/imaging reviewed. Past medical history, past surgical history, family history, social history, allergy reviewed and noted as below Family hx: no hx of CKD. Rest non-contributory UA SG <1.005 and moderate blood with RBCs and few bacteria Objective - Vital Signs/Intake and Output Vital Signs (last 24 hours): Temp Pulse Resp BP Pulse Ox 98.2 F 96 H 19 107/74 97 07/24/18 13:16 07/24/18 13:16 07/24/18 13:16 07/24/18 13:16 07/24/18 06:00 Intake and Output: 07/24/18 07/24/18 06:59 18:59 Intake Total 1380 Output Total 300 Balance 1080 - Medications Medications: Current Medications Amlodipine Besylate (Norvasc) 10 mg PO DAILY [facility] Last Admin: 07/24/18 09:00 Dose: 10 mg Apixaban (Eliquis) 10 mg PO BID [facility]; Protocol Stop: 07/29/18 18:01 Last Admin: 07/24/18 09:00 Dose: 10 mg Apixaban (Eliquis) 5 mg PO BID [facility]; Protocol Arformoterol Tartrate (Brovana) 15 mcg IH [id number] [facility] Last Admin: 07/24/18 07:26 Dose: 15 mcg Aspirin (Ecotrin) 81 mg PO DAILY [facility] Last Admin: 07/24/18 09:00 Dose: 81 mg Atorvastatin Calcium (Lipitor) 10 mg PO DIN [facility] Last Admin: 07/23/18 17:33 Dose: 10 mg Budesonide (Pulmicort Respules) 0.5 mg IH [id number] [facility] Last Admin: 07/24/18 07:26 Dose: 0.5 mg Glipizide (Glucotrol) 5 mg PO HS [facility] Last Admin: 07/23/18 21:28 Dose: 5 mg Guaifenesin/Dextromethorphan (Mucinex-Dm 600-30 Mg) 1 tab PO BID [facility] Hydralazine HCl (Apresoline) 10 mg PO QID PRN PRN Reason: for sbp>160 Sodium Chloride (Sodium Chloride 0.45%) 1,000 mls @ 80 mls/hr IV .[id number] [facility] Insulin Human Regular (Humulin R Low) 0 units SC [facility]; Protocol Last Admin: 07/24/18 12:34 Dose: 1 unit Morphine Sulfate (Morphine) 2 mg IVP Q4H PRN PRN Reason: Pain, moderate (4-7) Last Admin: 07/24/18 14:02 Dose: 2 mg Sodium Bicarbonate (Sodium Bicarbonate Tab) 650 mg PO BID [facility] Last Admin: 07/24/18 11:45 Dose: 650 mg - Labs Labs: 07/24/18 07:00 07/24/18 07:00 PT 11.7 SECONDS (9.4-12.5) 07/22/18 11:57 INR 1.04 07/22/18 11:57 APTT 64.5 Seconds (26.9-38.3) H 07/23/18 11:30
[2018-07-24] MEDS ORDERED: Ergocalciferol 50,000 Intl Units Cap PO SCH (16:30)
[2018-07-24] MEDS: guaiFENesin-DM 600-30 mg ER Tab PO SCH (18:57)
[2018-07-24] MEDS: Sodium Chloride 0.9% 1,000 ML IV SCH (18:59)
--- NOTE | 2018-07-24 19:54 | PN ---
DATE: 07/23/2018 SUBJECTIVE: The patient is comfortable. No distress. No nausea. No vomiting. He is on Eliquis 10 mg b.i.d., off heparin, seen by Hematology and Pulmonary. He has no other complaints. PHYSICAL EXAMINATION VITAL SIGNS: Temperature 97.3, heart rate 76, blood pressure 114/65, and respiratory rate of 18. HEAD AND NECK: Normal. No JVD. No thyromegaly. CHEST: Clear bilateral. CARDIAC: First sound and second sound normal. No murmur, rubs, or gallop. ABDOMEN: Soft, obese, and nontender. EXTREMITIES: No edema. NEUROLOGIC: Normal. LABORATORY DATA: White count 9.9, hemoglobin 11.2, hematocrit 34.6, and platelets 194. His chemistry showed sodium 136, potassium 5.2, chloride 102, bicarb 19, BUN 28, creatinine 2.1. Phosphorus 4.7, magnesium 1.9, calcium 8.7. Hemoglobin A1c 6.7. Troponin is negative. IMPRESSION AND PLAN: 1. Acute pulmonary embolism, acute deep venous thrombosis on top of chronic. Continue Eliquis 10 mg daily. 2. The patient has chronic renal failure with acute worsening. The patient had creatinine went up to 2.1. Continue intravenous fluid. Renal consult to see the patient. 3. Diabetes. Seems well controlled. Hemoglobin A1c is 6.7. Continue insulin and now metformin. We will continue his insulin coverage. The patient also is getting Glucotrol 5 mg, we may need to decrease that dose because of his renal failure. Continue that. Monitor his sugar on regular basis. 4. Acute renal worsening on top of chronic. Seen by senior application security consultant Dr. Jaydon Saldivar. Continue sodium bicarbonate 650 mg b.i.d. and continue intravenous fluid. 5. Hypercholesterolemia. Lipitor 10 mg p.o. at bedtime. Plan, continue current therapy for hypertension. He is getting hydralazine 10 mg q.i.d. p.r.n. only. Continue current therapy. Followup clinically. Reynold Wallace MD
[2018-07-25 00:25] VITALS: O2SAT 99
[2018-07-25] MEDS: Sodium Chloride 0.9% 1,000 ML IV SCH ×4 (01:23→15:01)
[2018-07-25 07:30] LABS: CALCIUM 8.5 mg/dL (8.4-10.5)
[2018-07-25] MEDS: Insulin Reg-LOW-Coverage SC SCH ×3 (08:06→17:17)
[2018-07-25] MEDS: Arformoterol 15 mcg/2 ml Inh Sol IH SCH ×2 (08:26→20:06)
[2018-07-25] MEDS: Budesonide 0.5 mg/2 ml Inhal Susp UD IH SCH ×2 (08:26→20:06)
[2018-07-25] MEDS: Sodium Chloride 0.45% 1,000 ML IV SCH (08:46)
--- NOTE | 2018-07-25 09:12 | CP.PCM.PN ---
<YamileTae - Last Filed: 07/25/18 09:12> Subjective - Date & Time of Evaluation Date of Evaluation: 07/24/18 Time of Evaluation: 09:11 - Subjective Subjective: Heme/onc progress note - Yamile PGY - 2 Patient seen and examined at bedside; patient states that his RLE is in more pain and that it is swollen moreso than usual. Patient denies any shortness of breath or chest pain. No acute overnight events. Objective - Vital Signs/Intake and Output Vital Signs (last 24 hours): Temp Pulse Resp BP Pulse Ox 98.6 F 87 20 132/78 99 07/25/18 06:00 07/25/18 06:00 07/25/18 06:00 07/25/18 06:00 07/25/18 06:00 Intake and Output: 07/25/18 07/25/18 06:59 18:59 Intake Total 2040 Output Total 1050 Balance 990 - Medications Medications: Current Medications Amlodipine Besylate (Norvasc) 10 mg PO DAILY [facility] Last Admin: 07/24/18 09:00 Dose: 10 mg Apixaban (Eliquis) 10 mg PO BID [facility]; Protocol Stop: 07/29/18 18:01 Last Admin: 07/24/18 18:57 Dose: 10 mg Apixaban (Eliquis) 5 mg PO BID [facility]; Protocol Arformoterol Tartrate (Brovana) 15 mcg IH [id number] [facility] Last Admin: 07/25/18 08:26 Dose: 15 mcg Aspirin (Ecotrin) 81 mg PO DAILY [facility] Last Admin: 07/24/18 09:00 Dose: 81 mg Atorvastatin Calcium (Lipitor) 10 mg PO DIN [facility] Last Admin: 07/24/18 18:57 Dose: 10 mg Budesonide (Pulmicort Respules) 0.5 mg IH [id number] [facility] Last Admin: 07/25/18 08:26 Dose: 0.5 mg Ergocalciferol (Drisdol 50,000 Intl Units Cap) 1 cap PO Q7D [facility] Last Admin: 07/24/18 18:58 Dose: 1 cap Glipizide (Glucotrol) 5 mg PO HS [facility] Last Admin: 07/24/18 23:22 Dose: 5 mg Guaifenesin/Dextromethorphan (Mucinex-Dm 600-30 Mg) 1 tab PO BID [facility] Last Admin: 07/24/18 18:57 Dose: 1 tab Hydralazine HCl (Apresoline) 10 mg PO QID PRN PRN Reason: for sbp>160 Sodium Chloride (Sodium Chloride 0.9%) 1,000 mls @ 150 mls/hr IV .[id number] [facility] Last Admin: 07/25/18 01:23 Dose: 150 mls/hr Insulin Human Regular (Humulin R Low) 0 units SC ACHS [facility]; Protocol Last Admin: 07/25/18 08:06 Dose: Not Given Morphine Sulfate (Morphine) 2 mg IVP Q4H PRN PRN Reason: Pain, moderate (4-7) Last Admin: 07/24/18 23:23 Dose: 2 mg Sodium Bicarbonate (Sodium Bicarbonate Tab) 650 mg PO BID [facility] Last Admin: 07/24/18 18:57 Dose: 650 mg - Labs Labs: 07/24/18 07:00 07/25/18 06:36 PT 11.7 SECONDS (9.4-12.5) 07/22/18 11:57 INR 1.04 07/22/18 11:57 APTT 64.5 Seconds (26.9-38.3) H 07/23/18 11:30 - Constitutional Appears: Well - Head Exam Head Exam: ATRAUMATIC, NORMAL INSPECTION, NORMOCEPHALIC - Eye Exam Eye Exam: EOMI, Normal appearance, PERRL Pupil Exam: NORMAL ACCOMODATION, PERRL - ENT Exam ENT Exam: Mucous Membranes Moist, Normal Exam - Neck Exam Neck Exam: Full ROM, Normal Inspection. absent: Lymphadenopathy - Respiratory Exam Respiratory Exam: Clear to Ausculation Bilateral, NORMAL BREATHING PATTERN - Cardiovascular Exam Cardiovascular Exam: REGULAR RHYTHM, +S1, +S2. absent: Murmur - GI/Abdominal Exam GI & Abdominal Exam: Soft, Normal Bowel Sounds. absent: Tenderness - Extremities Exam Extremities Exam: Full ROM, Normal Capillary Refill, Normal Inspection. absent: Joint Swelling, Pedal Edema - Back Exam Back Exam: NORMAL INSPECTION - Neurological Exam Neurological Exam: Alert, Awake, CN II-XII Intact, Normal Gait, Oriented x3 - Psychiatric Exam Psychiatric exam: Normal Affect, Normal Mood - Skin Skin Exam: Dry, Intact, Normal Color, Warm Assessment and Plan - Assessment and Plan (Free Text) Assessment: 67 M with pertinent medical history of Factor V Leiden and previous DVT/pe's presents with bilateral PE but no saddle PE. Patient was complaining of more pain today in RLE. ECHO showing mild pulm HTN with RVSP of 26. In light of new pain, we would like to obtain MR of pelvis with SOFY to assess extent of clot. Plan - Hold TCU transfer - Will hydrate for at least 6 hours and then obtain MR-V of pelvis and abdomen - Vascular surgery consult with Dr. Montano - Agree with Eliquis - Hypercoaguable work up including Protein C, Protein S, Anti-phospholipid, Anti thrombin, and Factor V Leiden, pending THank you for this interesting consult; we will follow with you <Paulette Collazo - Last Filed: 07/25/18 21:15> Objective - Vital Signs/Intake and Output Vital Signs (last 24 hours): Temp Pulse Resp BP Pulse Ox 98 F 70 18 155/81 H 99 07/25/18 17:42 07/25/18 17:42 07/25/18 17:42 07/25/18 17:42 07/25/18 06:00 Intake and Output: 07/25/18 07/26/18 18:59 06:59 Intake Total 2217 Output Total 1400 Balance 817 - Medications Medications: Current Medications Amlodipine Besylate (Norvasc) 10 mg PO DAILY [facility] Last Admin: 07/25/18 10:27 Dose: 10 mg Apixaban (Eliquis) 10 mg PO BID [facility]; Protocol Stop: 07/29/18 18:01 Last Admin: 07/25/18 17:17 Dose: 10 mg Apixaban (Eliquis) 5 mg PO BID [facility]; Protocol Arformoterol Tartrate (Brovana) 15 mcg IH [id number] [facility] Last Admin: 07/25/18 20:06 Dose: 15 mcg Aspirin (Ecotrin) 81 mg PO DAILY [facility] Last Admin: 07/25/18 10:27 Dose: 81 mg Atorvastatin Calcium (Lipitor) 10 mg PO DIN [facility] Last Admin: 07/25/18 17:17 Dose: 10 mg Bisacodyl (Dulcolax) 5 mg PO BID PRN PRN Reason: Constipation Last Admin: 07/25/18 15:01 Dose: 5 mg Budesonide (Pulmicort Respules) 0.5 mg IH [id number] [facility] Last Admin: 07/25/18 20:06 Dose: 0.5 mg Docusate Sodium (Colace) 100 mg PO BID [facility] Last Admin: 07/25/18 17:17 Dose: 100 mg Ergocalciferol (Drisdol 50,000 Intl Units Cap) 1 cap PO Q7D [facility] Last Admin: 07/24/18 18:58 Dose: 1 cap Glipizide (Glucotrol) 5 mg PO HS [facility] Last Admin: 07/24/18 23:22 Dose: 5 mg Guaifenesin/Dextromethorphan (Mucinex-Dm 600-30 Mg) 1 tab PO BID [facility] Last Admin: 07/25/18 17:17 Dose: 1 tab Hydralazine HCl (Apresoline) 10 mg PO QID PRN PRN Reason: for sbp>160 Sodium Chloride (Sodium Chloride 0.9%) 1,000 mls @ 100 mls/hr IV .Q10H [facility] Stop: 07/25/18 21:17 Last Admin: 07/25/18 17:16 Dose: 100 mls/hr Insulin Human Regular (Humulin R Low) 0 units SC [facility]; Protocol Last Admin: 07/25/18 17:17 Dose: 1 unit Morphine Sulfate (Morphine) 2 mg IVP Q4H PRN PRN Reason: Pain, moderate (4-7) Last Admin: 07/25/18 14:25 Dose: 2 mg Nicotine (Nicoderm Cq) 1 patch TD DAILY [facility] Last Admin: 07/25/18 14:59 Dose: Not Given Sodium Bicarbonate (Sodium Bicarbonate Tab) 650 mg PO BID [facility] Last Admin: 07/25/18 17:17 Dose: 650 mg - Labs Labs: 07/24/18 07:00 07/25/18 06:36 PT 11.7 SECONDS (9.4-12.5) 07/22/18 11:57 INR 1.04 07/22/18 11:57 APTT 64.5 Seconds (26.9-38.3) H 07/23/18 11:30 Attending/Attestation - Attestation I have personally seen and examined this patient.: Yes I have fully participated in the care of the patient.: Yes I have reviewed all pertinent clinical information, including history, physical exam and plan: Yes
--- NOTE | 2018-07-25 09:45 | CP.PCM.PN ---
Subjective - Date & Time of Evaluation Date of Evaluation: 07/25/18 Time of Evaluation: 06:40 - Subjective Subjective: Awake, alert, no distress Reason for consultation and follow up:Cardiac evaluation of pulmonary embolism and deep vein thrombosis, on Eliquis Seen and examined by me and Dr. Connolly Objective - Vital Signs/Intake and Output Vital Signs (last 24 hours): Temp Pulse Resp BP Pulse Ox 98.6 F 87 20 132/78 99 07/25/18 06:00 07/25/18 06:00 07/25/18 06:00 07/25/18 06:00 07/25/18 06:00 Intake and Output: 07/25/18 07/25/18 06:59 18:59 Intake Total 2040 Output Total 1050 Balance 990 - Medications Medications: Current Medications Amlodipine Besylate (Norvasc) 10 mg PO DAILY [facility] Last Admin: 07/24/18 09:00 Dose: 10 mg Apixaban (Eliquis) 10 mg PO BID [facility]; Protocol Stop: 07/29/18 18:01 Last Admin: 07/24/18 18:57 Dose: 10 mg Apixaban (Eliquis) 5 mg PO BID [facility]; Protocol Arformoterol Tartrate (Brovana) 15 mcg IH [id number] [facility] Last Admin: 07/25/18 08:26 Dose: 15 mcg Aspirin (Ecotrin) 81 mg PO DAILY [facility] Last Admin: 07/24/18 09:00 Dose: 81 mg Atorvastatin Calcium (Lipitor) 10 mg PO DIN [facility] Last Admin: 07/24/18 18:57 Dose: 10 mg Budesonide (Pulmicort Respules) 0.5 mg IH [id number] [facility] Last Admin: 07/25/18 08:26 Dose: 0.5 mg Ergocalciferol (Drisdol 50,000 Intl Units Cap) 1 cap PO Q7D [facility] Last Admin: 07/24/18 18:58 Dose: 1 cap Glipizide (Glucotrol) 5 mg PO HS [facility] Last Admin: 07/24/18 23:22 Dose: 5 mg Guaifenesin/Dextromethorphan (Mucinex-Dm 600-30 Mg) 1 tab PO BID [facility] Last Admin: 07/24/18 18:57 Dose: 1 tab Hydralazine HCl (Apresoline) 10 mg PO QID PRN PRN Reason: for sbp>160 Sodium Chloride (Sodium Chloride 0.9%) 1,000 mls @ 150 mls/hr IV .Q6H40M [facility] Last Admin: 07/25/18 01:23 Dose: 150 mls/hr Insulin Human Regular (Humulin R Low) 0 units SC ACHS [facility]; Protocol Last Admin: 07/25/18 08:06 Dose: Not Given Morphine Sulfate (Morphine) 2 mg IVP Q4H PRN PRN Reason: Pain, moderate (4-7) Last Admin: 07/24/18 23:23 Dose: 2 mg Sodium Bicarbonate (Sodium Bicarbonate Tab) 650 mg PO BID [facility] Last Admin: 07/24/18 18:57 Dose: 650 mg - Labs Labs: 07/24/18 07:00 07/25/18 06:36 PT 11.7 SECONDS (9.4-12.5) 07/22/18 11:57 INR 1.04 07/22/18 11:57 APTT 64.5 Seconds (26.9-38.3) H 07/23/18 11:30 - Constitutional Appears: Non-toxic, No Acute Distress - Head Exam Head Exam: NORMAL INSPECTION, NORMOCEPHALIC - Eye Exam Eye Exam: Normal appearance Pupil Exam: NORMAL ACCOMODATION - ENT Exam ENT Exam: Mucous Membranes Moist, Normal Exam - Respiratory Exam Respiratory Exam: Decreased Breath Sounds, Clear to Ausculation Bilateral, NORMAL BREATHING PATTERN - Cardiovascular Exam Cardiovascular Exam: +S1, +S2 - GI/Abdominal Exam GI & Abdominal Exam: Soft, Normal Bowel Sounds - Extremities Exam Extremities Exam: Full ROM, Normal Capillary Refill - Neurological Exam Neurological Exam: Alert, Awake, Oriented x3 - Psychiatric Exam Psychiatric exam: Normal Affect, Normal Mood - Skin Skin Exam: Dry, Normal Color, Warm Assessment and Plan - Assessment and Plan (Free Text) Assessment: A 67 year old male who came in to the ER due to complaining of bilateral leg pain to the back of the upper thighs. History of diabetes, hypertension, hyperlipidemia, Factor V Leiden (noncompliant w/ anticoagulants),deep vein thrombosis and pulmonary embolism in 2010, post inferior vena cava filter. He stopped his Coumadin. Admitted for deep vein thrombosis and pulmonary embolism. Started on Heparin and switch to Eliquis. Troponin negative. Echo done and showed LVEF 55-60%, trace AR, mild MR/TR/PVR, RVSP 26 mmHg, IVC normal. Out patient stress test 4-6 weeks. Hematology/Oncology on consult.Pulmonary and Renal on consult. Cardiac status stable. Plan: No distress Cardiac status stable Heart rate controlled Blood pressure controlled Continue on Eliquis On Norvasc 10 mg daily, Eliquis 10 mg BID till 07/29/18 then 5 mg BID, ASA 81 mg daily,Lipitor 10 mg daily, Continue current medications Continue current treatment Avoid nephrotoxic medications Instructed on compliance of medications especially anticoagulant Discontinue telemetry Discharge planning Will follow up Plan and treatment discussed with Dr. Connolly
[2018-07-25] MEDS: guaiFENesin-DM 600-30 mg ER Tab PO SCH ×2 (10:27→17:17)
[2018-07-25] MEDS ORDERED: Barium Sulfate Susp 2.1% w/v, 2.0% w/w 450 mL Bottle PO ONE (11:10)
[2018-07-25 12:12] VITALS: PULSE 70; RESP 18
--- NOTE | 2018-07-25 12:26 | PN ---
DATE: 07/25/2018 REFERRING PHYSICIAN: Reynold Wallace MD SUBJECTIVE: The patient is seen lying in bed. No acute distress. No overnight events reported. Reports still having pain to bilateral lower extremities with swelling. No headache, rhinitis, cough, shortness of breath, chest pain, abdominal pain, nausea, vomiting, or diarrhea reported. The patient does report a bowel movement two days ago which he states was hard stool. The patient is scheduled for CT scan of abdomen and pelvis today. OBJECTIVE: VITAL SIGNS: Blood pressure 132/78, pulse 87, temperature 98.6, and oxygen saturation 99% on room air. GENERAL: No acute distress. HEENT: Moist mucous membranes. Crowded airway. NECK: Supple. No JVD. LUNGS: Fair airflow bilaterally. CARDIOVASCULAR: S1 and S2. ABDOMEN: Soft, nontender. No distention. No organomegaly. EXTREMITIES: Bilateral lower extremity edema. NEUROLOGIC: Awake, alert, verbal. Following commands. MEDICATIONS: Reviewed. Norvasc 10 mg daily; Eliquis 10 mg twice a day until 07/29/2018, then 5 mg twice a day starting on 07/30/2018; Brovana 15 mcg inhalation every 12 hours; aspirin 81 mg daily; Lipitor 10 mg at dinner; Pulmicort 0.5 mg inhalation every 12 hours; ergocalciferol 50,000 units weekly; glipizide 5 mg at bedtime; Mucinex DM one tablet twice a day, hydralazine 10 mg four times a day p.r.n., systolic blood pressure greater than 160; Humulin R sliding scale a.c. and at bedtime; morphine sulfate 10 mg IV push every 4 hours p.r.n.; sodium bicarbonate 650 mg p.o. twice a day, sodium chloride 0.9% at 1000 mL at 150 mL per hour. LABORATORY DATA: Reviewed. Sodium 137, potassium 4.5, chloride 110, carbon dioxide 20, anion gap 12, BUN 33, creatinine 1.5, GFR 56, POC glucose 107, random glucose 92, calcium 8.5. Extremity ultrasound shows extensive bilateral lower extremity acute thrombus, partial recanalization in the popliteal veins. IMPRESSION AND PLAN: Pulmonary embolism, deep venous thrombosis, history of Factor V Leiden deficiency, diabetes mellitus, hypertension, suspected chronic lung disease, suspected sleep apnea syndrome. The patient currently on oral anticoagulation. Continue inhaled bronchodilators. Pending CAT scan abdomen and pelvis to be done today. Recommend physical therapy for this patient. Fall precautions. Continue Hematology followup. The patient was seen and examined with Dr. Langley. Discussed assessment and plan as described above. The patient was seen and examined by Yosef Chen, nurse practitioner. Discussed assessment and plan as described above. Thank you for this consult. We will follow with you. April Navas APN Janeth Langley MD
[2018-07-25] MEDS ORDERED: Iodixanol 320 mg/ml 150 ml Bottle IV ONE (12:50)
--- NOTE | 2018-07-25 13:12 | CP.PCM.PCO ---
Physician Communication Note - Physician Communication Note Physician Communication Note: CT pending
[2018-07-25] MEDS ORDERED: Bisacodyl 5mg EC Tab PO PRN (14:01)
[2018-07-25] MEDS: Morphine 2 mg/ml ISec IVP PRN (14:25)
--- NOTE | 2018-07-25 15:15 | CP.PCM.PN ---
Subjective - Date & Time of Evaluation Date of Evaluation: 07/25/18 Time of Evaluation: 15:12 - Subjective Subjective: Nephrology Consultation Note: Assessment: stable Acute DVT/PE non-olguric Acute Kidney Injury (N17.9) likely due to contrast nephropathy and hemodynamic: improved Diabetic chronic Kidney Disease (E11.22) Hypertensive Chronic Kidney Disease (I12.9) Chronic Kidney Disease (N18.3) Stage 3 with ? mg proteinuria (R80.9) likely due to DM/HTN active smoker, Factor V leiden def, hx of PE in past microscopic hematuria, mild hyperkalemia/metabolic acidosis Plan No acute need for renal replacement therapy at this time. Hypertension control with meds as ordered. Maintain hemodynamics stable. Avoid hypotension. Patient not on ACEI/ARB due to recent DONN and hyperkalemia Monitor Input/Output, daily weights and renal function with basic metabolic panel continue sodium bicarb. weekly vit D added suggest urology eval in view of microscopic hematuria and smoking/age status heme/onc cardiology and pulmonary following Check urine analysis, spot protein/creatinine, albumin/creatinine ratio, urine c/s renal and bladder sonogram Check HIV/Hep B and Hep C serology, 25-OH vitamin D, iPTH, level. d/w heme-onc about further CT study with IV contrast. pt was aware about risk of contrast induced nephropathy. agree with IVF as NS to reduce the risk of DONN. can d/c IVF 6-8 hrs post contrast study Dose meds/antibiotics for reduced GFR. Avoid fleets enema/magnesium based laxatives. Avoid nephrotoxins/NSAIDs/ iodinated contrast (unless needed emergently) Glycemic control. HOLD METFORMIN. smoking cessation reinforced. Further work up/management as per primary team Thanks for allowing me to participate in care of your patient. Will follow patient with you. Please call if any Qs. had d/w team Dr Jaydon Saldivar Office: [phone] Chief Complaint; leg pain Reason for consult: Acute Kidney Injury HPI: Pt is a 67 M with hx of diabetes Mellitus (since 2002) without known retinopathy, hypertension (recent year) hyperlipidemia active smoker, Factor V leiden def, hx of PE in past but apparently non compliant with anti-coagulants presented with complaints of leg swelling and pain along with SOB and found to have B/L DVT and extensive PE. renal consult for DONN management. pt feels better now. not aware about kidney disease in past Denies OTC/herbal meds or NSAIDs Noted recent iodinated contrast exposure. Noted obvious episodes of low BP (90s when came). active smoker. denies etoh or drugs at present ROS: c/o leg swelling Cardiovascular: No chest pain. Pulmonary: No shortness of breath Gastrointestinal: denies abdominal pain No nausea. No vomiting. Genitourinary: No pain while urinating. Denies blood in urine. All other negative except as mentioned in HPI Physical Examination: General Appearance: Comfortable, in no acute respiratory distress, co-operative . Vitals reviewed and noted as below Head; Atraumatic, normocephalic ENT: no ulcers no thrush. Tongue is midline. Oropharynx: no rash or ulcers. EYES: Pupils are equal, round and reactive to light accommodation. Eye muscles and extraocular movement intact. Sclera is anicteric. Neck; supple no lymphadenopathy, no thyromegaly or bruit Lungs: Normal respiratory rate/effort. Breath sounds bilateral reduced at bases Heart: Normal rate. s1s2 normal. No rub or gallop. Extremities: 1+ edema. No varicose veins Neurological: Patient is alert, awake and oriented to person, place and time. No focal deficit. Strength bilateral appropriate and equal Skin: Warm and dry. Normal turgor. No rash. Palpitation: Normal elasticity for age Abdomen: Abdomen is soft. Bowel sounds +. There is no abdominal tenderness, no guarding/rigidity no organomegaly Psych: normal insight and normal affect/mood MSK: no joint tenderness or swelling. Digits and nails normal, no deformity : kidney or bladder not palpable Labs/imaging reviewed. Past medical history, past surgical history, family history, social history, allergy reviewed and noted as below Family hx: no hx of CKD. Rest non-contributory UA SG <1.005 and moderate blood with RBCs and few bacteria Objective - Vital Signs/Intake and Output Vital Signs (last 24 hours): Temp Pulse Resp BP Pulse Ox 98.2 F 70 18 143/81 99 07/25/18 12:00 07/25/18 12:00 07/25/18 12:00 07/25/18 12:00 07/25/18 06:00 Intake and Output: 07/25/18 07/25/18 06:59 18:59 Intake Total 2040 Output Total 1050 Balance 990 - Medications Medications: Current Medications Amlodipine Besylate (Norvasc) 10 mg PO DAILY [facility] Last Admin: 07/25/18 10:27 Dose: 10 mg Apixaban (Eliquis) 10 mg PO BID [facility]; Protocol Stop: 07/29/18 18:01 Last Admin: 07/25/18 10:27 Dose: 10 mg Apixaban (Eliquis) 5 mg PO BID [facility]; Protocol Arformoterol Tartrate (Brovana) 15 mcg IH [id number] [facility] Last Admin: 07/25/18 08:26 Dose: 15 mcg Aspirin (Ecotrin) 81 mg PO DAILY [facility] Last Admin: 07/25/18 10:27 Dose: 81 mg Atorvastatin Calcium (Lipitor) 10 mg PO DIN [facility] Last Admin: 07/24/18 18:57 Dose: 10 mg Bisacodyl (Dulcolax) 5 mg PO BID PRN PRN Reason: Constipation Last Admin: 07/25/18 15:01 Dose: 5 mg Budesonide (Pulmicort Respules) 0.5 mg IH [id number] [facility] Last Admin: 07/25/18 08:26 Dose: 0.5 mg Docusate Sodium (Colace) 100 mg PO BID [facility] Ergocalciferol (Drisdol 50,000 Intl Units Cap) 1 cap PO Q7D [facility] Last Admin: 07/24/18 18:58 Dose: 1 cap Glipizide (Glucotrol) 5 mg PO HS [facility] Last Admin: 07/24/18 23:22 Dose: 5 mg Guaifenesin/Dextromethorphan (Mucinex-Dm 600-30 Mg) 1 tab PO BID [facility] Last Admin: 07/25/18 10:27 Dose: 1 tab Hydralazine HCl (Apresoline) 10 mg PO QID PRN PRN Reason: for sbp>160 Sodium Chloride (Sodium Chloride 0.9%) 1,000 mls @ 150 mls/hr IV .Q6H40M [facility] Last Admin: 07/25/18 15:01 Dose: Not Given Insulin Human Regular (Humulin R Low) 0 units SC ACHS [facility]; Protocol Last Admin: 07/25/18 12:09 Dose: Not Given Morphine Sulfate (Morphine) 2 mg IVP Q4H PRN PRN Reason: Pain, moderate (4-7) Last Admin: 07/25/18 14:25 Dose: 2 mg Nicotine (Nicoderm Cq) 1 patch TD DAILY [facility] Last Admin: 07/25/18 14:59 Dose: Not Given Sodium Bicarbonate (Sodium Bicarbonate Tab) 650 mg PO BID [facility] Last Admin: 07/25/18 10:27 Dose: 650 mg - Labs Labs: 07/24/18 07:00 07/25/18 06:36 PT 11.7 SECONDS (9.4-12.5) 07/22/18 11:57 INR 1.04 07/22/18 11:57 APTT 64.5 Seconds (26.9-38.3) H 07/23/18 11:30
[2018-07-25] MEDS ORDERED: Sodium Chloride 0.9% 1,000 ML IV SCH (15:16)
--- NOTE | 2018-07-25 15:22 | CON ---
DATE OF CONSULTATION: 07/25/2018 TIME: 02:30 p.m. CHIEF COMPLAINT/HISTORY OF PRESENT ILLNESS: Mr. Franks is a pleasant noncompliant male with factor V Leiden(? homo vs heterozygote). His first DVT was in 2002. An IVC filter was placed at that time. He had a recurrent DVT with pulmonary embolus in 2010. He has not been compliant with his anticoagulation. 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 His history is significant for smoking, diabetes, hypertension, and dyslipidemia. I reviewed his CT scan and venous ultrasound. He has moderate to large bilateral pulmonary emboli. His right ventricle is not significantly dilated. He is hemodynamically stable and breathing comfortably at the current time. He has transitioned to [facility]. I had a long discussion with Mr. Franks and his about his noncompliance. He must remain on anticoagulation for the rest of his life. Presumably, his IVC filter and cava are thrombosed given the size of the pulmonary emboli. An MR venogram has been ordered of the IVC and iliac veins due to his renal insufficiency. His baseline creatinine is between 1.5-2. Mr. Franks must quit smoking. We will fit him with class I calf compression stockings that he must wear every day. He should exercise 3-4 days a week. He must be more compliant with his medical followup. I do not think thrombolysis or intervention on the IVC is clinically indicated at this time. He has mild swelling of the lower extremities. It is most likely a combination of acute on chronic DVT. This can be reevaluated in the future if clinically indicated. Sam Montano MD [facility]
--- NOTE | 2018-07-25 15:35 | CT ---
Date of service: 07/25/2018 PROCEDURE: CT Abdomen and Pelvis with contrast HISTORY: Eval IVC filter; Iliacs; Renal vv COMPARISON: None. TECHNIQUE: Contrast dose: Radiation dose: Total exam DLP = 1257.35 mGy-cm. This CT exam was performed using one or more of the following dose reduction techniques: Automated exposure control, adjustment of the mA and/or kV according to patient size, and/or use of iterative reconstruction technique. FINDINGS: LOWER THORAX: Small right lower lobe infiltrate/discoid atelectasis. LIVER: Unremarkable. No gross lesion or ductal dilatation. GALLBLADDER AND BILE DUCTS: Unremarkable. PANCREAS: Unremarkable. No gross lesion or ductal dilatation. SPLEEN: Unremarkable. ADRENALS: Unremarkable. No mass. KIDNEYS AND URETERS: Unremarkable. No hydronephrosis. No solid mass. VASCULATURE: Inferior vena cava filter tip roughly 2 centimeters below the level of the renal vein confluence. No contrast noted within the vena cava below the level of the filter; cannot exclude thrombus. Wedge-shaped hypodensity above the level of the renal vein confluence possibly representing clot or related to contrast mixing artifact. Minimal infiltration in the retroperitoneal fat tracking along the left hemipelvis. BOWEL: Unremarkable. No obstruction. No gross mural thickening. APPENDIX: Normal appendix. PERITONEUM: Unremarkable. No free fluid. No free air. LYMPH NODES: Unremarkable. No enlarged lymph nodes. BLADDER: Unremarkable. REPRODUCTIVE: Unremarkable. BONES: No acute fracture. OTHER FINDINGS: None. IMPRESSION: Inferior vena cava filter tip roughly 2 centimeters below the level of the renal vein confluence. No contrast noted within the vena cava below the level of the filter; cannot exclude thrombus. Wedge-shaped hypodensity above the level of the renal vein confluence possibly representing clot or related to contrast mixing artifact.
[2018-07-25 17:43] VITALS: BP 155/81; TEMP 98
[2018-07-27 07:56] LABS: B2 GLYCOPROTEIN I AB(IGA) <9 SAU (<=20); B2 GLYCOPROTEIN I AB(IGG) <9 SGU (<=20); B2 GLYCOPROTEIN I AB(IGM) <9 SMU (<=20)
== END 2018-07-25 21:23 | DRG 299 ==
LOC: ED 10:50 → ERH 14:22 → 2RSO 16:02
PROVIDERS: ADMIT Internal Medicine; ATTEND Internal Medicine
DX: I82.413 Acute embolism and thrombosis of femoral vein, bilateral (principal); I26.99 Other pulmonary embolism without acute cor pulmonale; D68.51 Activated protein C resistance; D68.2 Hereditary deficiency of other clotting factors; E87.2 Acidosis; N17.9 Acute kidney failure, unspecified; E11.9 Type 2 diabetes mellitus without complications; Z91.19 Patient's noncompliance with other medical treatment and regimen; Z91.14 Patient's other noncompliance with medication regimen; M79.604 Pain in right leg; M79.605 Pain in left leg; Z86.718 Personal history of other venous thrombosis and embolism; Z86.711 Personal history of pulmonary embolism; F17.200 Nicotine dependence, unspecified, uncomplicated; E11.22 Type 2 diabetes mellitus with diabetic chronic kidney disease; E78.00 Pure hypercholesterolemia, unspecified; E78.5 Hyperlipidemia, unspecified; E87.5 Hyperkalemia; F17.210 Nicotine dependence, cigarettes, uncomplicated; I12.9 Hypertensive chronic kidney disease with stage 1 through stage 4 chronic kidney disease, or unspecified chronic kidney disease; I27.20 Pulmonary hypertension, unspecified; N14.1 Nephropathy induced by other drugs, medicaments and biological substances; N18.9 Chronic kidney disease, unspecified; R31.29 Other microscopic hematuria; T50.8X5A Adverse effect of diagnostic agents, initial encounter; Z79.01 Long term (current) use of anticoagulants; Z79.84 Long term (current) use of oral hypoglycemic drugs; Z79.899 Other long term (current) drug therapy; Z95.828 Presence of other vascular implants and grafts

== ENCOUNTER 2018-07-25 21:27 | Inpatient (IN) | payer MEDICARE ==
[2018-07-25 22:49] VITALS: BMI 28.1
[2018-07-25] MEDS ORDERED: Pneumococcal 23-Valent Vaccine IM ONE (23:08)
[2018-07-25] MEDS ORDERED: Bisacodyl 5mg EC Tab PO PRN (23:47)
[2018-07-25] MEDS ORDERED: Morphine 2 mg/ml ISec IVP PRN (23:59)
[2018-07-26] MEDS: Insulin Reg-LOW-Coverage SC SCH ×4 (06:43→22:22)
[2018-07-26] MEDS: Arformoterol 15 mcg/2 ml Inh Sol IH SCH (07:27)
[2018-07-26] MEDS: Budesonide 0.5 mg/2 ml Inhal Susp UD IH SCH (07:27)
[2018-07-26] MEDS ORDERED: Arformoterol 15 mcg/2 ml Inh Sol IH SCH (08:00)
--- NOTE | 2018-07-26 09:21 | CP.PCM.PN ---
<Tae Ovalle Edwin - Last Filed: 07/26/18 09:14> Subjective - Date & Time of Evaluation Date of Evaluation: 07/25/18 Time of Evaluation: 09:14 - Subjective Subjective: Heme/onc progress note - Yamile pgy - 2 Patient seen and examined at bedside with no acute overnight events. Awaiting CT A/P with and without po and IV contrast. Objective - Vital Signs/Intake and Output Vital Signs (last 24 hours): Temp Pulse Resp BP Pulse Ox 98 F 71 20 151/78 H 07/26/18 06:00 07/26/18 07:30 07/26/18 06:00 07/26/18 06:00 - Medications Medications: Current Medications Amlodipine Besylate (Norvasc) 10 mg PO DAILY [facility] Apixaban (Eliquis) 10 mg PO BID [facility]; Protocol Arformoterol Tartrate (Brovana) 15 mcg IH [id number] [facility] Last Admin: 07/26/18 07:27 Dose: 15 mcg Arformoterol Tartrate (Brovana) 15 mcg IH [id number] [facility] Atorvastatin Calcium (Lipitor) 10 mg PO DIN [facility] Bisacodyl (Dulcolax) 5 mg PO BID PRN PRN Reason: Constipation Budesonide (Pulmicort Respules) 0.5 mg IH [id number] [facility] Last Admin: 07/26/18 07:27 Dose: 0.5 mg Docusate Sodium (Colace) 100 mg PO BID [facility] Ergocalciferol (Drisdol 50,000 Intl Units Cap) 1 cap PO Q7D [facility] Glipizide (Glucotrol) 5 mg PO 0730 [facility] Guaifenesin/Dextromethorphan (Mucinex-Dm 600-30 Mg) 1 tab PO BID [facility] Hydralazine HCl (Apresoline) 10 mg PO QID PRN PRN Reason: Systolic Blood Pressure Insulin Human Regular (Humulin R Low) 0 units SC [facility]; Protocol Last Admin: 07/26/18 06:43 Dose: Not Given Morphine Sulfate (Morphine) 2 mg IVP Q4H PRN PRN Reason: Pain, moderate (4-7) Last Admin: 07/26/18 00:47 Dose: 2 mg Nicotine (Nicoderm Cq) 1 patch TD DAILY [facility] Sodium Bicarbonate (Sodium Bicarbonate Tab) 650 mg PO BID [facility] - Constitutional Appears: Well - Head Exam Head Exam: ATRAUMATIC, NORMAL INSPECTION, NORMOCEPHALIC - Eye Exam Eye Exam: EOMI, Normal appearance, PERRL Pupil Exam: NORMAL ACCOMODATION, PERRL - ENT Exam ENT Exam: Mucous Membranes Moist, Normal Exam - Neck Exam Neck Exam: Full ROM, Normal Inspection. absent: Lymphadenopathy - Respiratory Exam Respiratory Exam: Clear to Ausculation Bilateral, NORMAL BREATHING PATTERN - Cardiovascular Exam Cardiovascular Exam: REGULAR RHYTHM, +S1, +S2. absent: Murmur - GI/Abdominal Exam GI & Abdominal Exam: Soft, Normal Bowel Sounds. absent: Tenderness - Extremities Exam Extremities Exam: Full ROM, Normal Capillary Refill, Normal Inspection. absent: Joint Swelling, Pedal Edema - Back Exam Back Exam: NORMAL INSPECTION - Neurological Exam Neurological Exam: Alert, Awake, CN II-XII Intact, Normal Gait, Oriented x3 - Psychiatric Exam Psychiatric exam: Normal Affect, Normal Mood - Skin Skin Exam: Dry, Intact, Normal Color, Warm Assessment and Plan - Assessment and Plan (Free Text) Assessment: 67 M with pertinent medical history of Factor V Leiden and previous DVT/pe's presents with bilateral PE but no saddle PE. Patient was complaining of more pain today in RLE. ECHO showing mild pulm HTN with RVSP of 26. Discussed in deth with Dr. Hugo and Mr. trevizo from MRI; the correct study to obtain will be the CT with IV contrast as opposed to MRI-V Plan - Awaiting CT A/P with and without contrast to see extent of clot - Patient has been hydrated adequately - Vascular surgery consult with Dr. Montano - Agree with Aayush - Hypercoaguable work up including Protein C, Protein S, Anti-phospholipid, Anti thrombin, and Factor V Leiden, pending THank you for this interesting consult; we will follow with you <Paulette Collazo P - Last Filed: 07/26/18 14:21> Objective - Vital Signs/Intake and Output Vital Signs (last 24 hours): Temp Pulse Resp BP Pulse Ox 98 F 71 20 151/78 H 07/26/18 06:00 07/26/18 07:30 07/26/18 06:00 07/26/18 10:20 - Medications Medications: Current Medications Amlodipine Besylate (Norvasc) 10 mg PO DAILY [facility] Last Admin: 07/26/18 10:20 Dose: 10 mg Apixaban (Eliquis) 10 mg PO BID [facility]; Protocol Last Admin: 07/26/18 10:20 Dose: 10 mg Arformoterol Tartrate (Brovana) 15 mcg IH [id number] [facility] Last Admin: 07/26/18 07:27 Dose: 15 mcg Atorvastatin Calcium (Lipitor) 10 mg PO DIN [facility] Bisacodyl (Dulcolax) 5 mg PO BID PRN PRN Reason: Constipation Budesonide (Pulmicort Respules) 0.5 mg IH [id number] [facility] Last Admin: 07/26/18 07:27 Dose: 0.5 mg Docusate Sodium (Colace) 100 mg PO BID [facility] Last Admin: 07/26/18 10:20 Dose: 100 mg Ergocalciferol (Drisdol 50,000 Intl Units Cap) 1 cap PO Q7D [facility] Last Admin: 07/26/18 10:20 Dose: 1 cap Glipizide (Glucotrol) 5 mg PO 0730 [facility] Guaifenesin/Dextromethorphan (Mucinex-Dm 600-30 Mg) 1 tab PO BID [facility] Last Admin: 07/26/18 10:20 Dose: 1 tab Hydralazine HCl (Apresoline) 10 mg PO QID PRN PRN Reason: Systolic Blood Pressure Insulin Human Regular (Humulin R Low) 0 units SC [facility]; Protocol Last Admin: 07/26/18 12:32 Dose: 1 unit Morphine Sulfate (Morphine) 2 mg IVP Q4H PRN PRN Reason: Pain, moderate (4-7) Last Admin: 07/26/18 00:47 Dose: 2 mg Nicotine (Nicoderm Cq) 1 patch TD DAILY [facility] Last Admin: 07/26/18 10:20 Dose: Not Given Sodium Bicarbonate (Sodium Bicarbonate Tab) 650 mg PO BID [facility] Last Admin: 07/26/18 10:21 Dose: 650 mg
[2018-07-26] MEDS ORDERED: Ergocalciferol 50,000 Intl Units Cap PO SCH (10:00)
[2018-07-26] MEDS: guaiFENesin-DM 600-30 mg ER Tab PO SCH ×2 (10:20→18:24)
--- NOTE | 2018-07-26 12:46 | CON ---
DATE: 07/26/2018 PULMONARY CONSULT NOTE REFERRING PHYSICIAN: Dr. Wallace. REASON FOR CONSULT: Recurrent pulmonary embolism. HISTORY OF PRESENT ILLNESS: This is a 67-year-old male with past medical history significant for hypertension, diabetes mellitus, hyperlipidemia, known history of factor V Leiden who had stopped anticoagulation many years ago. Came into the emergency room complaining of leg pain, shortness of breath, diaphoretic, CTA showed bilateral pulmonary embolism. The patient was started on IV anticoagulation, presently is on p.o. anticoagulation. The patient transferred from acute care to [facility] for rehabilitation. Today reports feeling okay. No cough. No shortness of breath. No chest pain. Does report swelling in lower extremities. PAST MEDICAL HISTORY: As per history of present illness. ALLERGIES: NO KNOWN ALLERGIES. SOCIAL HISTORY: Smoker. No EtOH abuse. No illicit drug use. FAMILY HISTORY: Positive for factor V deficiency. MEDICATIONS: Reviewed. Norvasc 10 mg daily, Eliquis 10 mg twice a day, Brovana 15 mcg inhalation every 12 hours, Lipitor 10 mg at dinner, Dulcolax 5 mg twice a day p.r.n., Pulmicort 0.5 mg inhalation every 12 hours, Colace 100 mg twice a day, ergocalciferol 50,000 units weekly, glipizide 5 mg daily, Mucinex DM 1 tab twice a day, hydralazine 10 mg four times a day p.r.n., Humulin R sliding scale a.c. and at bedtime, Morphine 2 mg IV push every 4 hours p.r.n., nicotine patch transdermal daily and sodium bicarbonate 650 mg twice a day. REVIEW OF SYSTEMS: No headache, rhinitis, cough, shortness of breath, chest pain, abdominal pain, nausea, vomiting and diarrhea. Reported has some leg pain, some leg swelling, admits to snoring, day time sleepiness. PHYSICAL EXAMINATION: GENERAL: No acute distress. VITAL SIGNS: Blood pressure 151/78, pulse 68 and temperature 98. HEENT: Moist mucous membrane. Crowded airway. NECK: Supple. No JVD. LUNGS: Fair airflow bilaterally. CARDIOVASCULAR: S1 and S2. ABDOMEN: Soft and nontender. No distention. No organomegaly. EXTREMITIES: Some bilateral lower extremity edema. NEUROLOGIC: Awake, alert, and verbal. Following commands. LABORATORY DATA: Reviewed. POC glucose 76. Abdomen and pelvic, p.o. on IV contrast, CT scan shows inferior vena cava filter tip roughly 2 cm below the level of renal vein confluence. No contrast noted within the vena cava below level of the filter, wedge shaped hypodensity above the level of the renal vein confluence possibly representing clot of related to contrast mixing artifact. IMPRESSION AND PLAN: Pulmonary embolism, deep venous thrombosis, history of factor V Leiden deficiency, diabetes mellitus, hypertension, suspected chronic lung disease and suspected sleep apnea syndrome. The patient currently on oral anticoagulation. Continue inhaled bronchodilators. Smoking cessation. Education provided to the patient to elevate bilateral lower extremities. Dr. Sam Montano's notes were appreciated. The patient to be fit for class I calf compression stockings. Per Dr. Montano, thrombolysis or intervention on the inferior vena cava is not clinically indicated at this time. The patient continue physical therapy, fall precautions. Recommend the patient have pulmonary function test as outpatient. Recommend the patient have sleep study as outpatient. The patient was seen and examined with Dr. Langley. Discussed assessment and plan as described above. The patient was seen and examined by Yosef Chen, nurse practitioner. Discussed assessment and plan as described above. Thank you for this consult and we will follow with you. April Navas APN Janeth Langley MD [place]
--- NOTE | 2018-07-26 16:39 | HP ---
DATE OF EXAM: 07/25/2018 CHIEF COMPLAINT: The patient admitted for rehabilitation and physical therapy. HISTORY OF PRESENT ILLNESS: A 67-year-old male complained of leg pain, came to the ER and found to have bilateral DVT and known hypercoagulable state with a [place] filter, but not complaint for me. 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 The patient was started on heparin, switched to Eliquis [address] of abdomen and MRA of the abdomen and pelvis, which shows inferior vena cava below the inferior vena cava there is a clot and some clots on top of it, which is consistent with his history. Discussed the case with Dr. Sam Montano. Please be advised this note and history and physical doing it on 07/25/2018. The case was discussed with Dr. Sam Montano, Interventional Vascular Radiology who recommend to continue Eliquis 10 mg b.i.d. The patient is otherwise stable and will be transferred to TCU, would be admitted and evaluated and followup. The patient denied any chest pain, any dyspnea at this time, but he feel weak and had intermittent leg pain. ALLERGIES: NO KNOWN ALLERGIES. SOCIAL HISTORY: He quit smoking since admission, but he does not smoke. He smoke less than 10 cigarettes a day. He drink socially, but no drugs. FAMILY HISTORY: Noncontributory. REVIEW OF SYSTEMS: As infrequent, he does have chronic intermittent leg pain, it is getting worse. He does have also arthritis, back problem. PAST MEDICAL HISTORY: As I mentioned, DVT, PE, noncompliant on Eliquis and history of noncompliance, also has history of hypertension on Norvasc 10 mg, history of diabetes type 2, hypercholesteremia and also history of tobacco addiction. PHYSICAL EXAMINATION: VITAL SIGNS: On admission 07/25/2018; temperature 98, heart rate 80, blood pressure 150/73, respirations 18. HEAD AND NECK: Normal. No JVD. No thyromegaly. CHEST: Clear bilateral. CARDIAC: First sound and second sound normal. ABDOMEN: Soft, mildly distended, but nontender. EXTREMITIES: No edema. NEUROLOGIC: Normal. LABORATORY DATA: His sugar is 76. He also has as mentioned MR and shows DVT to the IV filter. IMPRESSION: 1. Generalized weakness, starting physical therapy. 2. Bilateral leg deep venous thrombosis, proximal femoral vein and bilateral extensive pulmonary emboli, continue Eliquis 10 mg b.i.d. for total one week started 3 days ago. Followup with Dr. Collazo and Pulmonary consult, Dr. Langley. 3. Diabetes. Continue current medications, got insulin coverage. Hemoglobin A1c less than 7, seems doing okay with that. 4. Hypertension also controlled. Continue Norvasc, hydralazine p.r.n. 5. Chronic obstructive pulmonary disease. Continue inhaled bronchodilators. 6. Constipation. The patient is given Colace, Dulcolax. We will followup on that. 7. Tobacco addiction. Continue Nicoderm once a day. PLAN: Continue current therapy. Current medications; hydralazine 10 mg p.o. once a day p.r.n., Brovana, Pulmicort, Colace, vitamin E once a day, Dulcolax b.i.d. p.r.n., Eliquis 10 mg b.i.d., Glucotrol-XL 5 mg p.o. once a day, insulin coverage , Lipitor 10 mg, morphine 2 mg every 4 hours p.r.n., Mucinex DM, NicoDerm CQ 14 mg once a day, Norvasc 10 mg, Pulmicort b.i.d. nebulizers and sodium bicarbonate 650 mg b.i.d. The patient is currently off IV fluids. We will repeat his lab in the morning. Reynold Wallace MD
--- NOTE | 2018-07-26 23:00 | CON ---
DATE: 07/26/2018 CONSULT SERVICE: Cardiology. REASON FOR CONSULTATION: Followup of acute bilateral deep venous thrombosis/pulmonary embolism, continuous care in Transitional Care Unit. BRIEF CLINICAL HISTORY: This is a 67-year-old obese male with past medical history significant for DVT/PE in 2010, history of factor V Leiden deficiency, history of DVT/PE in the past when he underwent CT angiogram on admission, was found to have bilateral PE and DVT. The patient was initially treated in the floor with IV heparin and then later on started on Eliquis. Now, the patient is transferred over to the Transitional Care Unit for continuity of care. Denies any chest pain, shortness of breath or any palpitation. PAST MEDICAL HISTORY: As mentioned, significant for hematologically abnormal factor V Leiden deficiency, DVT/PE in the past, hypertension, hyperlipidemia, obesity, history of pulmonary embolism in 2010. CURRENT MEDICATION: The patient is taking in the hospital hydralazine, Brovana, Eliquis 10 mg p.o. b.i.d. for 1 week followed by 5 mg daily. REVIEW OF SYSTEMS: As per HPI. PHYSICAL EXAMINATION: As follows; GENERAL: Height of the patient 5 feet 11 inches, weight of the patient 202 pounds, body mass index 28.2 kg per m2. VITAL SIGNS: Temperature afebrile, heart rate 77, blood pressure 143/79. HEENT: PERRLA intact. NECK: Supple. No carotid bruit or thyromegaly. CHEST: Clear to auscultation. HEART: S1 and S2 regular. ABDOMEN: Soft. EXTREMITIES: Clubbing and cyanosis negative. LABORATORY DATA: Blood workup as follows; blood sugar of 103. IMPRESSION: A 67-year-old morbidly obese male with past medical history significant for factor V Leiden deficiency, admitted with acute deep venous thrombosis/pulmonary embolism with recurrent deep venous thrombosis. Initially, the patient said the patient had a deep venous thrombosis in 2010. RECOMMENDATIONS: Continue Eliquis as ordered 10 mg p.o. b.i.d. for a total of 1 week followed by 5 mg daily. Because of multiple risk factors, the patient needs a stress test. The patient has a scheduled stress test on 08/26/2018 as outpatient. Further recommendations will depend upon the hospital course. We will follow with you. Thank you Dr. Worley for providing us this opportunity in taking care of the patient, Leonides Franks. Janeth Connolly MD
[2018-07-27] MEDS: Budesonide 0.5 mg/2 ml Inhal Susp UD IH SCH ×3 (01:00→19:42)
[2018-07-27] MEDS: Arformoterol 15 mcg/2 ml Inh Sol IH SCH ×3 (01:00→19:42)
--- NOTE | 2018-07-27 02:02 | CP.PCM.PN ---
<YamileTae Edwin - Last Filed: 07/27/18 01:57> Subjective - Date & Time of Evaluation Date of Evaluation: 07/26/18 Time of Evaluation: 08:00 - Subjective Subjective: Heme/Onc progress note - Yamile PGY - 2 Patient seen and examined at bedside. Patient transferred to TCU. Pain is well controlled. Objective - Vital Signs/Intake and Output Vital Signs (last 24 hours): Temp Pulse Resp BP Pulse Ox 98 F 77 18 143/79 98 07/26/18 18:31 07/26/18 18:31 07/26/18 18:31 07/26/18 18:31 07/26/18 18:31 - Medications Medications: Current Medications Amlodipine Besylate (Norvasc) 10 mg PO DAILY [facility] Last Admin: 07/26/18 10:20 Dose: 10 mg Apixaban (Eliquis) 10 mg PO BID [facility]; Protocol Last Admin: 07/26/18 18:22 Dose: 10 mg Arformoterol Tartrate (Brovana) 15 mcg IH [id number] [facility] Last Admin: 07/27/18 01:00 Dose: 15 mcg Atorvastatin Calcium (Lipitor) 10 mg PO DIN [facility] Last Admin: 07/26/18 18:23 Dose: 10 mg Bisacodyl (Dulcolax) 5 mg PO BID PRN PRN Reason: Constipation Budesonide (Pulmicort Respules) 0.5 mg IH [id number] [facility] Last Admin: 07/27/18 01:00 Dose: 0.5 mg Docusate Sodium (Colace) 100 mg PO BID [facility] Last Admin: 07/26/18 18:22 Dose: 100 mg Ergocalciferol (Drisdol 50,000 Intl Units Cap) 1 cap PO Q7D [facility] Last Admin: 07/26/18 10:20 Dose: 1 cap Glipizide (Glucotrol) 5 mg PO 0730 [facility] Guaifenesin/Dextromethorphan (Mucinex-Dm 600-30 Mg) 1 tab PO BID [facility] Last Admin: 07/26/18 18:24 Dose: 1 tab Hydralazine HCl (Apresoline) 10 mg PO QID PRN PRN Reason: Systolic Blood Pressure Insulin Human Regular (Humulin R Low) 0 units [facility]; Protocol Last Admin: 07/26/18 22:22 Dose: Not Given Morphine Sulfate (Morphine) 2 mg IVP Q4H PRN PRN Reason: Pain, moderate (4-7) Last Admin: 07/26/18 00:47 Dose: 2 mg Nicotine (Nicoderm Cq) 1 patch TD DAILY [facility] Last Admin: 07/26/18 10:20 Dose: Not Given Sodium Bicarbonate (Sodium Bicarbonate Tab) 650 mg PO BID [facility] Last Admin: 07/26/18 18:24 Dose: 650 mg - Constitutional Appears: Well - Head Exam Head Exam: ATRAUMATIC, NORMAL INSPECTION, NORMOCEPHALIC - Eye Exam Eye Exam: EOMI, Normal appearance, PERRL Pupil Exam: NORMAL ACCOMODATION, PERRL - ENT Exam ENT Exam: Mucous Membranes Moist, Normal Exam - Neck Exam Neck Exam: Full ROM, Normal Inspection. absent: Lymphadenopathy - Respiratory Exam Respiratory Exam: Clear to Ausculation Bilateral, NORMAL BREATHING PATTERN - Cardiovascular Exam Cardiovascular Exam: REGULAR RHYTHM, +S1, +S2. absent: Murmur - GI/Abdominal Exam GI & Abdominal Exam: Soft, Normal Bowel Sounds. absent: Tenderness - Extremities Exam Extremities Exam: Full ROM, Normal Capillary Refill, Normal Inspection. absent: Joint Swelling, Pedal Edema - Back Exam Back Exam: NORMAL INSPECTION - Neurological Exam Neurological Exam: Alert, Awake, CN II-XII Intact, Normal Gait, Oriented x3 - Psychiatric Exam Psychiatric exam: Normal Affect, Normal Mood - Skin Skin Exam: Dry, Intact, Normal Color, Warm - Additional Findings Additional findings: RLE swelling improved at this time; TTP improved Assessment and Plan - Assessment and Plan (Free Text) Assessment: 67 M with pertinent medical history of Factor V Leiden and previous DVT/pe's presents with bilateral PE but no saddle PE. Patient was complaining of more pain today in RLE. ECHO showing mild pulm HTN with RVSP of 26. Discussed in deth with Dr. Hugo and Mr. trevizo from MRI; the correct study to obtain will be the CT with IV contrast as opposed to MRI-V; Though the study revealed possible extension of clot past the IVC Filter, thrombolytic therapy not necessarily indicated at this time. Plan - Vascular surgery consult with Dr. Montano: no indication for thrombolysis at this time - Patient will need to be on the look out for symptoms of phlegmasia alba dolens - explained to patient, he expresses understanding - Agree with Eliquis - Hypercoaguable work up including Protein C, Protein S, Anti-phospholipid, Anti thrombin, and Factor V Leiden, pending Thank you for this interesting consult; we will follow with you <Paulette Collazo - Last Filed: 07/27/18 20:42> Objective - Vital Signs/Intake and Output Vital Signs (last 24 hours): Temp Pulse Resp BP Pulse Ox 98.1 F 70 18 138/75 97 07/27/18 16:00 07/27/18 16:00 07/27/18 16:00 07/27/18 16:00 07/27/18 16:00 - Medications Medications: Current Medications Amlodipine Besylate (Norvasc) 10 mg PO DAILY [facility] Last Admin: 07/27/18 09:42 Dose: 10 mg Apixaban (Eliquis) 10 mg PO BID [facility]; Protocol Last Admin: 07/27/18 17:34 Dose: 10 mg Arformoterol Tartrate (Brovana) 15 mcg IH [id number] [facility] Last Admin: 07/27/18 19:42 Dose: 15 mcg Atorvastatin Calcium (Lipitor) 10 mg PO DIN [facility] Last Admin: 07/27/18 17:33 Dose: 10 mg Bisacodyl (Dulcolax) 5 mg PO BID PRN PRN Reason: Constipation Budesonide (Pulmicort Respules) 0.5 mg IH [id number] [facility] Last Admin: 07/27/18 19:42 Dose: 0.5 mg Docusate Sodium (Colace) 100 mg PO BID [facility] Last Admin: 07/27/18 17:33 Dose: 100 mg Ergocalciferol (Drisdol 50,000 Intl Units Cap) 1 cap PO Q7D [facility] Last Admin: 07/26/18 10:20 Dose: 1 cap Folic Acid (Folic Acid) 1 mg PO DAILY [facility] Glipizide (Glucotrol) 5 mg PO 0730 [facility] Last Admin: 07/27/18 08:10 Dose: 5 mg Guaifenesin/Dextromethorphan (Mucinex-Dm 600-30 Mg) 1 tab PO BID [facility] Last Admin: 07/27/18 17:41 Dose: 1 tab Hydralazine HCl (Apresoline) 10 mg PO QID PRN PRN Reason: Systolic Blood Pressure Insulin Human Regular (Humulin R Low) 0 units SC ACHS [facility]; Protocol Last Admin: 07/27/18 17:33 Dose: 1 unit Morphine Sulfate (Morphine) 2 mg IVP Q4H PRN PRN Reason: Pain, moderate (4-7) Last Admin: 07/26/18 00:47 Dose: 2 mg Nicotine (Nicoderm Cq) 1 patch TD DAILY [facility] Last Admin: 07/27/18 09:40 Dose: Not Given Sodium Bicarbonate (Sodium Bicarbonate Tab) 650 mg PO BID [facility] Last Admin: 07/27/18 17:34 Dose: 650 mg Attending/Attestation - Attestation I have personally seen and examined this patient.: Yes I have fully participated in the care of the patient.: Yes I have reviewed all pertinent clinical information, including history, physical exam and plan: Yes
[2018-07-27] MEDS: Insulin Reg-LOW-Coverage SC SCH ×4 (06:46→23:35)
[2018-07-27] MEDS: guaiFENesin-DM 600-30 mg ER Tab PO SCH ×2 (09:42→17:41)
--- NOTE | 2018-07-27 13:38 | PN ---
DATE: 07/27/2018 This is Mr. Franks's hospital visit on TCU. For Dr. Collazo, SUBJECTIVE: The patient is a 67-year-old male seen lying awake in bed on TCU with known coagulopathy, now on Eliquis, participating with TCU protocols , has not been out of bed with recommendations to do so as per physiotherapist's recommendations. He is status post recurrent pulmonary emboli and is in no acute distress since his leg pain modestly improved today. OBJECTIVE/PHYSICAL EXAMINATION: VITAL SIGNS: Temperature 98, pulse 77, respirations 18, blood pressure 125/85, pulse ox 98%. HEENT: Unremarkable. NECK: Supple. HEART: Regular rate. LUNGS: Clear. ABDOMEN: Soft and nontender. EXTREMITIES: Left greater than right faint +1 edema with decreased range of motion in the left lower extremity. NEUROLOGIC: Awake and alert. LABORATORY DATA: The patient's recent testing showed that the inferior vena cava filter tip is roughly 2 cm below the level of the renal vein confluence, possibly representing clot. Labs were not done today. ASSESSMENT: The assessment for this patient is that of deconditioning, recurrent pulmonary embolism, deep venous thrombosis, history of factor V Leiden deficiency, diabetes, and hypertension. PLAN: The plan for this patient is to continue present medical regimen with Eliquis continuing with further recommendations as indicated. We will also continue TCU protocols with the patient to be out of bed to the chair as tolerated. This is a complex patient with a comprehensive medically necessary and appropriate visit carried out in excess of 20 minutes with the patient's questions answered to his satisfaction. Louie Lara MD
[2018-07-27 15:34] LABS: URINE BILIRUBIN NEGATIVE (NEGATIVE); URINE BLOOD NEGATIVE (NEGATIVE); URINE GLUCOSE (UA) NEGATIVE (NEGATIVE); URINE LEUKOCYTE ESTERASE NEGATIVE Leu/uL (NEGATIVE); URINE PROTEIN TRACE mg/dL (<30 mg/dL); URINE UROBILINOGEN 0.2 E.U./dL (<1 E.U./dL)
[2018-07-27 15:37] LABS: URINE APPEARANCE CLEAR (CLEAR); URINE COLOR YELLOW (YELLOW)
[2018-07-27 15:47] LABS: URINE BACTERIA FEW /hpf
--- NOTE | 2018-07-27 22:35 | PN ---
DATE: 07/27/2018 REFERRING PHYSICIAN: Reynold Wallace MD SUBJECTIVE: He is participating in therapy on a bike with exercising and feels a little better. Decreased leg swelling. Still has some tenderness and short of breath on exertion. No chest pain. No nausea or vomiting. No diarrhea. OBJECTIVE: GENERAL: No acute distress. VITAL SIGNS: Temperature is 98, heart rate 70, respiratory rate is 18, blood pressure 138/75, and pulse ox 97% room air. HEENT: Moist mucous membrane. Crowded airway. NECK: Supple. No JVD. LUNGS: Have fair airflow with rhonchi. ABDOMEN: Soft and nontender. No organomegaly. EXTREMITIES: Have some edema. NEUROLOGIC: Awake and follows simple command. MEDICATIONS: He is on hydralazine 10 mg q.i.d. p.r.n., Brovana inhaled twice a day, Colace 100 mg twice a day, he is also getting vitamin D 50,000 units weekly, Dulcolax 5 mg twice a day p.r.n., Eliquis 10 mg twice a day, folic acid 1 mg daily, Glucotrol 5 mg daily, insulin coverage, Lipitor 10 mg daily, morphine 2 mg every 4 hours p.r.n., Mucinex DM 1 tablet twice a day, Nicoderm patch daily, Norvasc 10 mg daily, budesonide inhaled twice a day and also getting sodium bicarb 650 mg twice a day. LABORATORY DATA: Showed blood sugar this morning of 75. IMPRESSION AND PLAN: Pulmonary embolism, deep venous thrombosis, factor V Leiden deficiency, diabetes, hypertension, suspected chronic lung disease, sleep apnea syndrome, activities of daily living dysfunction, and has some swelling and edema of lower extremities. Pulmonary point of view, doing okay. We will continue anticoagulation, bronchodilator, and sleep apnea precaution. Awaiting for thigh high compression stockings. Thank you and we will follow with you. Janeth Langley MD
[2018-07-28] MEDS: Insulin Reg-LOW-Coverage SC SCH ×4 (06:46→22:19)
[2018-07-28] MEDS: Budesonide 0.5 mg/2 ml Inhal Susp UD IH SCH ×2 (07:28→19:33)
[2018-07-28] MEDS: Arformoterol 15 mcg/2 ml Inh Sol IH SCH ×2 (07:28→19:33)
[2018-07-28] MEDS: guaiFENesin-DM 600-30 mg ER Tab PO SCH ×2 (10:26→17:40)
--- NOTE | 2018-07-28 14:15 | PN ---
DATE: 07/28/2018 REASON FOR CONSULTATION AND FOLLOWUP: Acute bilateral DVT, pulmonary embolism, continuity of care in Transitional Care Unit, cardiac evaluation and followup. SUBJECTIVE: The patient denies any chest pain, shortness of breath, or any palpitation. Continuing rehab and trying to learn the climbing of stairs. PHYSICAL EXAMINATION: As follows; VITAL SIGNS: Temperature afebrile, heart rate 70, and blood pressure 138/75. HEENT: PERRLA. Extraocular muscles intact. NECK: Supple. No carotid bruits or thyromegaly. CHEST: Clear to auscultation. HEART: S1 and S2 regular. ABDOMEN: Soft. EXTREMITIES: Clubbing and cyanosis negative. LABORATORY DATA: Blood workup as follows; blood sugar of 135. IMPRESSION AND PLAN: A 67-year-old male, with a past medical history significant for factor V Leiden deficiency, deep venous thrombosis pulmonary embolism in the past, hypertension, hyperlipidemia, obesity, and history of pulmonary embolism in 2010, admitted with recurrent deep venous thrombosis and pulmonary embolism. The patient started on Eliquis 10 mg p.o. twice a day for total of one week followed by 5 mg daily. Because of multiple risk factors, the patient is scheduled for stress test as an outpatient on 08/26/2018. Further recommendations will depend upon hospital course. Continue Eliquis for total one week followed by 5 mg p.o. twice a day. We will look at the previous chart when the patient had started Eliquis. The patient was started on Eliquis on 07/26/2018, so we will continue for one week that is 08/02/2018, and then we will switch over to 5 mg p.o. twice a day and we will start Eliquis from Sunday 5 p.o. twice a day. Continue rehab and as mentioned, the patient is scheduled for a stress test on 08/26/2018. Thank you for providing us the opportunity in taking care of the patient, Leonides Franks. Janeth Connolly MD
--- NOTE | 2018-07-28 19:22 | PN ---
DATE: 07/28/2018 This is [facility] on TCU. For Dr. Collazo. SUBJECTIVE: The patient is a 67-year-old male seen ambulating in the hallway today, known to suffer from recent pulmonary emboli, history of DVT, factor V Leiden deficiency, decondition now on Eliquis with his leg pain modestly improved he reports today. OBJECTIVE/PHYSICAL EXAMINATION VITAL SIGNS: Temperature 98.1, pulse 70, respirations 18, blood pressure 125/85 and pulse ox 97%. HEENT: Unremarkable. NECK: Supple. HEART: Regular rate. LUNGS: Occasional rhonchi. ABDOMEN: Soft and nontender. EXTREMITIES: Faint +1 edema, left greater than right lower extremities. NEUROLOGIC: Awake and alert. SKIN: Warm and dry. LABORATORY DATA: The patient's labs will be done as per his attending doctor in 2 days' time. ASSESSMENT: For this patient is that of pulmonary embolism, deep venous thrombosis, factor V Leiden deficiency, hypertension on Eliquis and diabetes. PLAN: For this patient, continue present medical regimen with further recommendations as indicated, he will found his Eliquis and followup with Dr. Collazo, should he be discharged in near future. Louie Lara MD
--- NOTE | 2018-07-28 22:23 | PN ---
DATE: 07/28/2018 REFERRING PHYSICIAN: Reynold Wallace MD. SUBJECTIVE: He is out of bed to chair. Night was unremarkable. Feeling better. Decreased leg swelling and pain. No chest pain. No nausea. No vomiting. No diarrhea. OBJECTIVE: GENERAL: In no acute distress. VITAL SIGNS: Temperature is 98, heart rate 70, respiratory rate 18, blood pressure 125/85, pulse oxygen 97% on room air. HEENT: Moist mucous membranes. No ulcer or thrush noted. NECK: Supple. No JVD. LUNGS: Have fair airflow with a few rhonchi. HEART: S1, S2. ABDOMEN: Soft, nontender. No organomegaly. EXTREMITIES: Decreased edema. NEUROLOGIC: Awake and alert, follows simple commands. MEDICATIONS: He is on hydralazine 10 mg q.i.d. p.r.n., Brovana inhaled twice a day, Colace 100 mg twice a day, vitamin D 50,000 units weekly, Dulcolax 5 mg twice a day p.r.n., Eliquis 10 mg twice a day up to 08/02/2018 and then 5 mg twice a day, folic acid 1 mg daily, glipizide 5 mg daily, insulin coverage, Lipitor 10 mg daily, morphine 2 mg every 4 hours p.r.n., Mucinex DM 600/30 mg 1 tablet twice a day, Nicoderm patch, Norvasc 10 mg daily, Pulmicort inhaled twice a day, bicarbonate 650 mg twice a day. LABORATORY DATA: Shows blood sugar today is 135. IMPRESSION AND PLAN: Pulmonary embolism, deep venous thrombosis, history of inferior vena cava filter, factor V Leiden deficiency, diabetes, hypertension, suspected chronic lung disease, may have sleep apnea syndrome, activities of daily living dysfunction. From a Pulmonary point of view, he is doing pretty good. Continue therapy. Continue anticoagulation, gastric prophylaxis, sleep apnea precautions. Thank you and we will follow with you. Janeth Langley MD
[2018-07-29] MEDS: Insulin Reg-LOW-Coverage SC SCH ×4 (06:47→23:28)
[2018-07-29] MEDS: Budesonide 0.5 mg/2 ml Inhal Susp UD IH SCH ×2 (07:13→19:47)
--- NOTE | 2018-07-29 08:56 | PN ---
DATE: 07/29/2018 PULMONARY PROGRESS NOTE REFERRING PHYSICIAN: Reynold Wallace MD SUBJECTIVE: The patient is seen lying in bed, asleep easily arousable. Reports feeling well today. No headache, rhinitis, cough, shortness of breath, chest pain, abdominal pain, nausea, vomiting and diarrhea reported. The patient reports that leg pain is much better. Decreased in lower extremity swelling. OBJECTIVE: GENERAL: No acute distress. VITAL SIGNS: Blood pressure 130/76, pulse 68, temperature 97.8 and oxygen saturation 96% on room air. HEENT: Moist mucous membrane. NECK: Supple. No JVD. LUNGS: Fair airflow bilaterally. CARDIOVASCULAR: S1 and S2. ABDOMEN: Soft and nontender. No distention. No organomegaly. EXTREMITIES: Still with some lower extremity edema, but it is decreasing. NEUROLOGIC: Awake, alert and verbal. Following commands. MEDICATIONS: Reviewed. Norvasc 10 mg daily, Eliquis 10 mg twice a day until the 08/02/2018 and then 5 mg twice a day starting 08/03/2018, Brovana 15 mcg every 12 hours, Lipitor 10 mg at dinner, Bisacodyl 5 mg p.o. twice a day p.r.n., Pulmicort 0.5 mg inhalation every 12 hours, Colace 100 mg twice a day, Ergocalciferol 50,000 units weakly, folic acid 1 mg daily, glipizide 5 mg daily, Mucinex DM 1 tab twice a day, hydralazine 10 mg four times a day p.r.n., Humulin R sliding scale a.c. and at bedtime, morphine 2 mg IV push every 4 hours p.r.n., nicotine patch transdermal daily and sodium bicarbonate 650 mg twice a day. LABORATORY DATA: Reviewed. No new labs. IMPRESSION AND PLAN: Pulmonary embolism, deep venous thrombosis, history of inferior vena cava filter, factor V Leiden deficiency, diabetes mellitus, hypertension, suspected chronic lung disease, suspected sleep apnea syndrome, activities of daily living dysfunction. Pulmonary point of view, continue inhaled bronchodilators. The patient is on anticoagulation therapy. Continue smoking cessation. Gastric prophylaxis. Sleep apnea precaution. Head of bed elevated at 45 degrees. Recommend this patient have sleep study as outpatient. Recommend this patient have full pulmonary function test as outpatient. Continue physical therapy. The patient was seen and examined with Dr. Langley. Discussed assessment and plan as described above. The patient was seen and examined by April Navas, nurse practitioner. Discussed assessment and plan as described above. Thank you for this consult and we will follow with you. April Navas APN Janeth Langley MD
[2018-07-29] MEDS: guaiFENesin-DM 600-30 mg ER Tab PO SCH ×2 (10:48→17:55)
--- NOTE | 2018-07-29 13:39 | PN ---
DATE: 07/29/2018 REASON FOR CONSULTATION AND FOLLOWUP: Acute bilateral DVT, pulmonary embolism, continuity of care in Transitional Care Unit, cardiac evaluation and followup. SUBJECTIVE: The patient denies any chest pain, shortness of breath, or any palpitation. OBJECTIVE: GENERAL: Not in apparent distress. VITAL SIGNS: Temperature afebrile, heart rate 60, and blood pressure 130/76. HEENT: PERRLA. Extraocular muscles intact. NECK: Supple. No carotid bruits or thyromegaly. CHEST: Clear to auscultation. HEART: S1 and S2 regular. ABDOMEN: Soft. EXTREMITIES: Clubbing and cyanosis negative. LABORATORY DATA: Blood workup as follows; blood glucose 261. IMPRESSION: A 67-year-old male with past medical history significant for factor V Leiden deficiency, deep venous thrombosis pulmonary embolism in the past, hypertension, hyperlipidemia and obesity. History of deep venous thrombosis and pulmonary embolism in 2010 admitted with recurrent deep venous thrombosis and pulmonary embolism, the patient stopped the medications after one year in 2010, stopped himself. Started the patient is on Eliquis 10 mg twice a day for one week followed by 5 mg daily. Because of multiple risk factors, the patient is scheduled for stress test as an outpatient on 08/26/2018. RECOMMENDATIONS: We will continue as mentioned 10 mg of Eliquis till Sunday and start from Sunday08/02/2018 5 mg p.o. twice a day, order was written. Continue rehab, possible discharge soon. We will repeat the blood workup in the morning including magnesium, phosphorus and CBC and SMA-7. Thank you Dr. Wallace, for providing us the opportunity in taking care of the patient, Leonides Franks. Janeth Connolly MD
--- NOTE | 2018-07-29 19:19 | PN ---
DATE: 07/29/2018 This is [facility] visit on TCU. For Dr. Collazo. SUBJECTIVE: The patient is a 67-year-old male seen sitting up in bed with his family member at the bedside, in no acute distress, participating with TCU protocols. Still with a little leg discomfort, but improved with analgesics. Otherwise, he is without complaint of his pulmonary emboli and DVT history. He continues on Eliquis. OBJECTIVE/PHYSICAL EXAMINATION: VITAL SIGNS: Temperature 97.9, pulse 78, respirations 14, blood pressure 132/78, pulse ox 100%. HEENT: Unremarkable. NECK: Supple. HEART: Regular rate. LUNGS: Rare rhonchi. ABDOMEN: Soft and nontender. EXTREMITIES: Faint edema, left greater than right. NEUROLOGIC: Awake and alert. SKIN: Warm and dry. LABORATORY DATA: Labs were checked in the morning as per his primary doctor on TCU protocol. IMPRESSION: Recurrent deep venous thrombosis, pulmonary embolus, on Eliquis, history of factor V Leiden deficiency, lower extremity discomfort secondary to deep venous thrombosis, hypertension, diabetes. PLAN: The plan for this patient is to continue him on Eliquis as per protocol with followup in the office as an outpatient once he is discharged from TCU. Continue TCU protocols for his deconditioning. Louie Lara MD
[2018-07-29] MEDS: Arformoterol 15 mcg/2 ml Inh Sol IH SCH (19:47)
[2018-07-30 06:41] LABS: HEMOGLOBIN 9.7 g/dL (14.0-18.0); MEAN CELL VOLUME 83.2 fl (80.0-105.0); MEAN CORPUSCULAR HEMOGLOBIN 27.1 pg (25.0-35.0); MEAN CORPUSCULAR HGB CONC 32.6 g/dl (31.0-37.0); MEAN PLATELET VOLUME 8.5 fl (7.0-11.0); RBC 3.58 10^6/uL (3.5-6.1); RED CELL DISTRIBUTION WIDTH 12.7 % (11.5-14.5); WHITE BLOOD COUNT 5.7 10^3/uL (4.5-11.0)
[2018-07-30 07:12] LABS: BLOOD UREA NITROGEN 23 mg/dL (7-21); CALCIUM 8.7 mg/dL (8.4-10.5); GFR NON-AFRICAN AMERICAN > 60
[2018-07-30] MEDS: Insulin Reg-LOW-Coverage SC SCH ×4 (07:27→22:02)
[2018-07-30] MEDS: Arformoterol 15 mcg/2 ml Inh Sol IH SCH ×2 (07:32→19:45)
[2018-07-30] MEDS: Budesonide 0.5 mg/2 ml Inhal Susp UD IH SCH ×2 (07:32→19:46)
[2018-07-30] MEDS: guaiFENesin-DM 600-30 mg ER Tab PO SCH ×2 (09:56→17:22)
--- NOTE | 2018-07-30 10:05 | PN ---
DATE: 07/27/2018 SUBJECTIVE: The patient is seen doing better. He moved his bowels. No chest pain. No shortness of breath. Physical therapy tolerated well. No dizziness. No chest pain or shortness of breath. PHYSICAL EXAMINATION: VITAL SIGNS: Temperature is 98, heart rate 77, blood pressure 143/79, respiration 18, saturation 98%. HEAD AND NECK: Normal. No JVD. No thyromegaly. CHEST: Examination clear bilaterally. CARDIAC: First sound and second sound normal. ABDOMEN: Soft. Nontender. EXTREMITIES: No edema. NEUROLOGICAL: Examination normal. LABORATORY DATA: Blood sugar 121. IMPRESSION: 1. Acute deep vein thrombosis of lower extremity, on top of chronic. 2. Acute pulmonary embolism, bilateral, extensive. The plan is to continue Eliquis 10 mg b.i.d. and then switch to 5 mg b.i.d. 3. Diabetes. Continue insulin coverage. He is currently getting Glucotrol XL 5 mg daily. 4. Chronic obstructive pulmonary disease. Continue Brovana and Pulmicort. 5. Chronic renal insufficiency. History of diabetic nephropathy. It is contrast-induced nephropathy. Last creatinine was normal. Continue sodium bicarbonate 650 b.i.d. 6. Hypertension. Continue Norvasc. 7. Smoker. Nicotine addiction. Continue Nicoderm CQ. 8. Hypercholesterolemia, stable on Lipitor. PLAN: Continue current therapy. Continue physical therapy. Follow up clinically with other consultants. Reynold Wallace MD
--- NOTE | 2018-07-30 12:31 | PN ---
DATE: 07/30/2018 PULMONARY PROGRESS NOTE REFERRING PHYSICIAN: Reynold Wallace MD SUBJECTIVE: The patient is seen sitting in the day room. No acute distress. No overnight events reported. Reports feeling well today. No headache, rhinitis, cough, shortness of breath, chest pain, abdominal pain, nausea, vomiting or diarrhea reported. Reports improvement in leg pain and improvement in swelling in bilateral lower extremities. OBJECTIVE: GENERAL: No acute distress. VITAL SIGNS: Blood pressure 132/68, pulse 80, temperature 97.9 and oxygen saturation 98% on room air. HEENT: Moist mucous membranes. NECK: Supple. No JVD. LUNGS: Fair airflow bilaterally. CARDIOVASCULAR: S1 and S2. ABDOMEN: Soft and nontender. No distention. No organomegaly. EXTREMITIES: Trace bilateral lower extremity edema. NEUROLOGIC: Awake, alert and verbal. Following commands. MEDICATIONS: Reviewed. Norvasc 10 mg daily, Eliquis 10 mg twice a day to end 07/30/2018, and Eliquis 5 mg twice a day starting 07/31/2018, Brovana 15 mcg inhalation every 12 hours , Lipitor 10 mg at dinner, Dulcolax 5 mg twice a day p.r.n., Pulmicort 0.5 mg inhalation every 12 hours, Colace 100 mg twice a day, Ergocalciferol 50,000 units every 7 days, folic acid 1 mg daily, glipizide 5 mg daily, Mucinex DM 1 tab twice a day, hydralazine 10 mg four times a day p.r.n., Humulin R sliding scale a.c. and at bedtime, Nicoderm patch transdermal daily and sodium bicarbonate 650 mg twice a day. LABORATORY DATA: Reviewed. WBC 5.7, RBC 3.58, hemoglobin 9.7, hematocrit 29.8 and platelets 255. Sodium 138, potassium 4.9, chloride 109, carbon dioxide 24, anion gap 10, BUN 23, creatinine 1.2, GFR is greater than 60, POC glucose 151, random glucose 118, calcium 8.7, phosphorous 3.7 and magnesium 2.3. IMPRESSION AND PLAN: Pulmonary embolism, deep venous thrombosis, history of inferior vena cava filter, factor V Leiden deficiency, diabetes mellitus, hypertension, suspected chronic lung disease, sleep apnea syndrome and activities of daily living dysfunction. Pulmonary point of view, the patient is currently on anticoagulation therapy. Continue inhaled bronchodilators. Gastric prophylaxis. Head of bed elevated at 45 degrees. Sleep apnea precaution. Continue smoking cessation. Recommend the patient have a full pulmonary function test as outpatient to evaluate the extent of chronic lung disease. Recommend the patient have sleep study as outpatient to evaluate for sleep apnea syndrome. Continue physical therapy. Fall precautions. The patient was seen and examined with Dr. Langley. Discussed assessment and plan as described above. The patient was seen and examined by April Navas, nurse practitioner. Discussed assessment and plan as described above. Thank you for this consult and we will follow with you. April Navas APN Janeth Langley MD
--- NOTE | 2018-07-30 14:00 | PN ---
DATE: 07/29/2018 SUBJECTIVE: The patient seems to be doing well. The patient is stable. No chest pain. No short of breath. His leg pain is better. He walks, go upstairs and stairs steps. He is on physical therapy seems tolerating it well. PHYSICAL EXAMINATION VITAL SIGNS: temperature 97.9, heart rate 78, blood pressure 132/78, respirations 14, and saturation 100%. HEAD AND NECK: Normal. No JVD. No thyromegaly. CHEST: Clear bilateral. CARDIAC: First sound and second sounds are normal. No murmur, rub, or gallop. ABDOMEN: Soft, nontender. EXTREMITIES: No edema. NEUROLOGIC: Normal. LABORATORY DATA: Labs have been ordered for tomorrow. IMPRESSION: 1. Acute pulmonary embolism. 2. Acute deep vein thrombosis. 3. Hypercoagulable state. PLAN: 1. Continue Eliquis as prescribed. Currently, he is on 10 mg b.i.d. 2. Chronic obstructive pulmonary disease, continue Brovana and Pulmicort. 3. Hypertension. Continue Norvasc 10 mg plus hydralazine p.r.n. q.i.d. 10 mg. 4. Tobacco addiction. He is onNicoDerm CQ once a day, continue that. 5. Hypercholesterolemia. Continue Lipitor. 6. Diabetes type 2, continue insulin plus Glucotrol 5 mg p.o. daily. Blood sugar runs between 100 to 200, stable. Last blood sugar was 134. Reynold Wallace MD
--- NOTE | 2018-07-30 17:02 | PN ---
DATE: 07/30/2018 REASON FOR CONSULTATION AND FOLLOWUP: Acute bilateral DVT, pulmonary embolism, continuity of care in Transitional Care Unit, cardiac evaluation and followup. SUBJECTIVE: The patient denies any chest pain, shortness of breath, or any palpitation. PHYSICAL EXAMINATION: GENERAL: Not in apparent distress. VITAL SIGNS: Temperature afebrile, heart rate 80, blood pressure 132/60. HEENT: PERRLA. Extraocular muscles intact. NECK: Supple. No carotid bruits. No thyromegaly. CHEST: Clear to auscultation. HEART: S1 and S2, regular. ABDOMEN: Soft. EXTREMITIES: Clubbing, cyanosis negative. LABORATORY DATA: WBC 5.7, hemoglobin 9.1, hematocrit 29.8, platelet count 255. Chemistries show sodium 138, potassium 4.9, chloride 109, carbon dioxide 24, anion gap of 10, BUN 23 and creatinine 1.2. Magnesium 2.3. . IMPRESSION: A 67-year-old male with past medical history significant for factor V Leiden deficiency, deep venous thrombosis, pulmonary embolism, hypertension, hyperlipidemia and obesity. History of deep venous thrombosis in 2010, admitted with recurrent deep venous thrombosis and pulmonary embolism, The patient's last admission was in 2010, after one year stopped the Coumadin himself. Now the patient started on Eliquis 10 mg p.o. twice daily, p.o. two times daily, getting rehab.. The patient is scheduled a stress test on 08/26/2018 for risk stratification. RECOMMENDATIONS: Continue Eliquis 10 mg p.o. b.i.d. till 08/02/2018 followed by 5 mg p.o. from 08/03/2018. Continue amlodipine. Continue atorvastatin. previous chart from the two-hour review at Room 276, bed 1. The patient was started on Eliquis 5 mg p.o. two times daily for seven days started on 07/24/2018. So today will be the seventh day and start 5 mg p.o. two times a day from tomorrow. Will appropriately adjust the dose of Coumadin. Will start Eliquis 5 mg from tomorrow. Will follow with you. The patient has some renal insufficiently, significantly improved. Recommend to avoid nephrotoxic medications. Thank you Dr. Wallace, for providing us the opportunity in taking care of the patient Leonides Franks*. Janeth Connolly MD
[2018-07-31] MEDS: Insulin Reg-LOW-Coverage SC SCH ×3 (06:55→17:03)
[2018-07-31] MEDS: Budesonide 0.5 mg/2 ml Inhal Susp UD IH SCH (08:13)
[2018-07-31] MEDS: Arformoterol 15 mcg/2 ml Inh Sol IH SCH (08:13)
--- NOTE | 2018-07-31 08:53 | CP.PCM.PN ---
<YamileTae Edwin - Last Filed: 07/31/18 08:53> Subjective - Date & Time of Evaluation Date of Evaluation: 07/30/18 Time of Evaluation: 08:52 - Subjective Subjective: Heme/onc progress note - Yamile pgy - 2 Patient seen and examined at bedside with no acute overnight events. Is participating well with PT/OT. Swelling and pain in RLE better; patient denies any acute complaints and denies any change in color. Objective - Vital Signs/Intake and Output Vital Signs (last 24 hours): Temp Pulse Resp BP Pulse Ox 98.9 F 80 16 132/68 99 07/30/18 10:00 07/30/18 10:00 07/30/18 10:00 07/30/18 10:00 07/30/18 10:00 - Medications Medications: Current Medications Amlodipine Besylate (Norvasc) 10 mg PO DAILY [facility] Last Admin: 07/30/18 10:00 Dose: 10 mg Apixaban (Eliquis) 5 mg PO BID [facility]; Protocol Arformoterol Tartrate (Brovana) 15 mcg IH [id number] [facility] Last Admin: 07/31/18 08:13 Dose: 15 mcg Atorvastatin Calcium (Lipitor) 10 mg PO DIN [facility] Last Admin: 07/30/18 17:22 Dose: 10 mg Bisacodyl (Dulcolax) 5 mg PO BID PRN PRN Reason: Constipation Last Admin: 07/29/18 18:32 Dose: 5 mg Budesonide (Pulmicort Respules) 0.5 mg IH [id number] [facility] Last Admin: 07/31/18 08:13 Dose: 0.5 mg Docusate Sodium (Colace) 100 mg PO BID [facility] Last Admin: 07/30/18 17:21 Dose: 100 mg Ergocalciferol (Drisdol 50,000 Intl Units Cap) 1 cap PO Q7D [facility] Last Admin: 07/26/18 10:20 Dose: 1 cap Folic Acid (Folic Acid) 1 mg PO DAILY [facility] Last Admin: 07/30/18 09:56 Dose: 1 mg Glipizide (Glucotrol) 5 mg PO 0730 [facility] Last Admin: 07/31/18 07:39 Dose: 5 mg Guaifenesin/Dextromethorphan (Mucinex-Dm 600-30 Mg) 1 tab PO BID [facility] Last Admin: 07/30/18 17:22 Dose: 1 tab Hydralazine HCl (Apresoline) 10 mg PO QID PRN PRN Reason: Systolic Blood Pressure Insulin Human Regular (Humulin R Low) 0 units SC ACHS [facility]; Protocol Last Admin: 07/31/18 06:55 Dose: Not Given Nicotine (Nicoderm Cq) 1 patch TD DAILY [facility] Last Admin: 07/30/18 09:56 Dose: Not Given Sodium Bicarbonate (Sodium Bicarbonate Tab) 650 mg PO BID [facility] Last Admin: 07/30/18 17:22 Dose: 650 mg - Labs Labs: 07/30/18 06:15 07/30/18 06:15 - Constitutional Appears: Well - Head Exam Head Exam: ATRAUMATIC, NORMAL INSPECTION, NORMOCEPHALIC - Eye Exam Eye Exam: EOMI, Normal appearance, PERRL Pupil Exam: NORMAL ACCOMODATION, PERRL - ENT Exam ENT Exam: Mucous Membranes Moist, Normal Exam - Neck Exam Neck Exam: Full ROM, Normal Inspection. absent: Lymphadenopathy - Respiratory Exam Respiratory Exam: Clear to Ausculation Bilateral, NORMAL BREATHING PATTERN - Cardiovascular Exam Cardiovascular Exam: REGULAR RHYTHM, +S1, +S2. absent: Murmur - GI/Abdominal Exam GI & Abdominal Exam: Soft, Normal Bowel Sounds. absent: Tenderness - Extremities Exam Extremities Exam: Full ROM, Normal Capillary Refill, Normal Inspection. absent: Joint Swelling, Pedal Edema - Back Exam Back Exam: NORMAL INSPECTION - Neurological Exam Neurological Exam: Alert, Awake, CN II-XII Intact, Normal Gait, Oriented x3 - Psychiatric Exam Psychiatric exam: Normal Affect, Normal Mood - Skin Skin Exam: Dry, Intact, Normal Color, Warm Assessment and Plan - Assessment and Plan (Free Text) Assessment: 67 M with pertinent medical history of Factor V Leiden and previous DVT/pe's presents with bilateral PE but no saddle PE. Patient was complaining of more p ain today in RLE. ECHO showing mild pulm HTN with RVSP of 26. Discussed in deth with Dr. Hugo and Mr. trevizo from MRI; the correct study to obtain will be the CT with IV contrast as opposed to MRI-V; Though the study revealed possible extension of clot past the IVC Filter, thrombolytic therapy not necessarily indicated at this time. Plan - Protein C: 107; Protein S: 76; AT-III: 104; AT-III activity: 114; Factor V Leiden: not detected; APS - says to wait 12 weeks; Anti-cardiolipin: all negative - Pulm: sleep study as outpatient - Labs are okay today; CR 1.2; Hgb dropped to 9.2 - could be because of all of the hydration - At this time patient is stable, does not need thrombolytics - Patient will need to be on the look out for symptoms of phlegmasia alba dolens <Paulette Collazo P - Last Filed: 07/31/18 19:38> Objective - Vital Signs/Intake and Output Vital Signs (last 24 hours): Temp Pulse Resp BP Pulse Ox 98.1 F 73 18 144/75 100 07/31/18 16:30 07/31/18 16:30 07/31/18 16:30 07/31/18 16:30 07/31/18 16:30 Intake and Output: 07/31/18 08/01/18 18:59 06:59 Intake Total 420 Balance 420 - Labs Labs: 07/30/18 06:15 07/30/18 06:15 Attending/Attestation - Attestation I have personally seen and examined this patient.: Yes I have fully participated in the care of the patient.: Yes I have reviewed all pertinent clinical information, including history, physical exam and plan: Yes
[2018-07-31] MEDS: guaiFENesin-DM 600-30 mg ER Tab PO SCH ×2 (10:01→17:03)
--- NOTE | 2018-07-31 11:12 | PN ---
DATE: 07/30/2018 SUBJECTIVE: A 67-year-old male. The patient is stable, comfortable, walking around with a cane. His pain in the lower extremity is tolerable. No respiratory distress. No other complaint. PHYSICAL EXAMINATION: VITAL SIGNS: Temperature 98.9, heart rate 80, blood pressure 132/68, respirations 16, sat 99%. HEAD AND NECK: Normal. No JVD. No thyromegaly. CHEST: Clear bilateral. CARDIAC: First sound and second sound normal. No murmur, rub, or gallop. ABDOMEN: Soft, nontender. EXTREMITIES: No edema. NEUROLOGIC: Normal. LABORATORY DATA: White count 5.7, hemoglobin 9.7, hematocrit 29.8, platelets 255. Chemistry; sodium 138, potassium 4.9, chloride 109, bicarbonate 24, BUN 23, creatinine 1.2, blood sugar 118, magnesium 2.3, calcium is normal. Urinalysis is normal. IMPRESSION AND PLAN: 1. Recurrent deep venous thrombosis and pulmonary embolism. The patient had a Savage filter that is also clotted. Continue Eliquis using 10 mg b.i.d. for now, while doing better. 2. Hypertension. Continue current medicines, Norvasc, seems stable. 3. Diabetes type 2. Continue Glucotrol once a day. 4. General weakness, gait disorders. Continue physical therapy. 5. Tobacco addiction. Continue Nicoderm. The patient seems to be doing well with the current medication. Continue current medicines for underlying chronic obstructive pulmonary disease, he seems doing okay with Brovana and Pulmicort. Continue current meds including Lipitor for hypercholesterolemia 10 mg at bedtime. Reynold Wallace MD
--- NOTE | 2018-07-31 13:05 | PN ---
DATE: 07/31/2018 REFERRING PHYSICIAN: Reynold Wallace MD SUBJECTIVE: He is sitting at the side of the bed. Night was unremarkable. Feels much better. No cough, no shortness breath, no chest pain. No nausea, no vomiting, no diarrhea. Still has trace leg swelling. OBJECTIVE GENERAL: In no acute distress. VITAL SIGNS: Temperature is 98, heart rate is 80, respiratory is 20, blood pressure 127/81, pulse ox 99% on room air. HEENT: Moist mucous membranes. Crowded airway. NECK: Supple. No JVD. LUNGS: Have a fair airflow, rare rhonchi. HEART: S1, S2. ABDOMEN: Soft, nontender, no organomegaly. EXTREMITIES: Has edema. NEUROLOGIC: Awake and alert, follows simple commands. MEDICATIONS: He is on hydralazine 10 mg q.i.d. p.r.n., Brovana inhaled twice a day, Colace 100 mg twice a day, vitamin D 50,000 units every 7 days, Dulcolax p.r.n. basis, Eliquis 5 mg twice a day, folic acid 1 mg daily, glipizide 5 mg daily, insulin coverage, Lipitor 10 mg daily, guanfacine p.r.n. basis, Nicoderm patch daily, Norvasc 10 mg daily, budesonide inhaled twice a day, bicarbonate 650 mg twice a day. LABORATORY DATA: Shows a blood sugar of 112. IMPRESSION AND PLAN: Pulmonary embolism, deep venous thrombosis, history of inferior vena cava filter, factor V Leiden deficiency, diabetes, hypertension, suspected chronic lung disease, sleep apnea syndrome, activities of daily living dysfunction. Pulmonary point, very much better. Continue anticoagulation. Probably will need lifelong anticoagulation outpatient and PFT sleep study, fall precautions, recommended to elevate legs while sitting down. Thank you and we will follow with you. Janeth Langley MD
--- NOTE | 2018-07-31 15:53 | PN ---
DATE: 07/31/2018 REASON FOR CONSULTATION AND FOLLOWUP: Acute bilateral DVT, PE, continuity of care in Transitional Care Unit, cardiac evaluation, and followup. SUBJECTIVE: The patient denies any chest pain, shortness of breath, or any palpitation. Not in any apparent distress. PHYSICAL EXAMINATION VITAL SIGNS: Temperature afebrile, heart rate 80, and blood pressure 127/81. HEENT: PERRLA. Extraocular muscles intact. NECK: Supple. No carotid bruits. No thyromegaly. CHEST: Clear to auscultation. HEART: S1 and S2, regular. ABDOMEN: Soft. EXTREMITIES: Clubbing, cyanosis negative. LABORATORY DATA: WBC 8.1, hemoglobin 9.2, hematocrit 29.8, and platelet count 255. Chemistry shows sodium 130, potassium 4.9, chloride 104, carbon dioxide 24, anion gap of 10, BUN 23 and creatinine 1.2. IMPRESSION: A 67-year-old male with past medical history significant for factor V Leiden deficiency, deep venous thrombosis, pulmonary embolism, hypertension, hyperlipidemia and obesity. History of deep venous thrombosis in 2010, admitted with recurrent deep venous thrombosis at this time. The patient has stopped taking anticoagulation after 2010. Now, the patient is started on Eliquis 10 mg p.o. b.i.d. for 1 week followed by 5 mg p.o. b.i.d. from yesterday. Discharge planning. CVS status is stable. The patient is scheduled for stress test on 08/26/2018. Risk stratification scheduled stress test as outpatient. Thank you Dr. Wallace, for providing us the opportunity in taking care of the patient, Leonides Franks. Janeth Connolly MD
[2018-07-31 17:00] VITALS: BP 144/75; PULSE 73; RESP 18; TEMP 98.1; O2SAT 100
--- NOTE | 2018-08-01 06:32 | CP.PCM.PN ---
<YamileTae - Last Filed: 08/01/18 06:29> Subjective - Date & Time of Evaluation Date of Evaluation: 07/31/18 Time of Evaluation: 06:29 - Subjective Subjective: Heme/onc progress note - Yamile pgy - 2 Patient seen and examined at bedside with no acute overnight events. Is participating well with PT/OT. Swelling and pain in RLE better; patient denies any acute complaints and denies any change in color. Is possibly going home today. Objective - Vital Signs/Intake and Output Vital Signs (last 24 hours): Temp Pulse Resp BP Pulse Ox 98.1 F 73 18 144/75 100 07/31/18 16:30 07/31/18 16:30 07/31/18 16:30 07/31/18 16:30 07/31/18 16:30 Intake and Output: 07/31/18 08/01/18 18:59 06:59 Intake Total 420 Balance 420 - Labs Labs: 07/30/18 06:15 07/30/18 06:15 - Constitutional Appears: Well - Head Exam Head Exam: ATRAUMATIC, NORMAL INSPECTION, NORMOCEPHALIC - Eye Exam Eye Exam: EOMI, Normal appearance, PERRL Pupil Exam: NORMAL ACCOMODATION, PERRL - ENT Exam ENT Exam: Mucous Membranes Moist, Normal Exam - Neck Exam Neck Exam: Full ROM, Normal Inspection. absent: Lymphadenopathy - Respiratory Exam Respiratory Exam: Clear to Ausculation Bilateral, NORMAL BREATHING PATTERN - Cardiovascular Exam Cardiovascular Exam: REGULAR RHYTHM, +S1, +S2. absent: Murmur - GI/Abdominal Exam GI & Abdominal Exam: Soft, Normal Bowel Sounds. absent: Tenderness - Extremities Exam Extremities Exam: Full ROM, Normal Capillary Refill, Normal Inspection. absent: Joint Swelling, Pedal Edema - Back Exam Back Exam: NORMAL INSPECTION - Neurological Exam Neurological Exam: Alert, Awake, CN II-XII Intact, Normal Gait, Oriented x3 - Psychiatric Exam Psychiatric exam: Normal Affect, Normal Mood - Skin Skin Exam: Dry, Intact, Normal Color, Warm Assessment and Plan - Assessment and Plan (Free Text) Assessment: 67 M with pertinent medical history of Factor V Leiden and previous DVT/pe's pre sents with bilateral PE but no saddle PE. Patient was complaining of more pain today in RLE. ECHO showing mild pulm HTN with RVSP of 26. Discussed in deth with Dr. Hugo and joseline from MRI; the correct study to obtain will be the CT with IV contrast as opposed to MRI-V; Though the study revealed possible extension of clot past the IVC Filter, thrombolytic therapy not necessarily indicated at this time. Plan - Protein C: 107; Protein S: 76; AT-III: 104; AT-III activity: 114; Factor V Leiden: not detected; APS - says to wait 12 weeks; Anti-cardiolipin: all negat deniz - Pulm: sleep study as outpatient - Patient will need to be on the look out for symptoms of phlegmasia alba dolens - Should follow up with Dr. Collazo as an outpatient <Paulette Collazo P - Last Filed: 08/01/18 22:50> Objective - Vital Signs/Intake and Output Vital Signs (last 24 hours): Temp Pulse Resp BP Pulse Ox 98.1 F 73 18 144/75 100 07/31/18 16:30 07/31/18 16:30 07/31/18 16:30 07/31/18 16:30 07/31/18 16:30 - Labs Labs: 07/30/18 06:15 07/30/18 06:15 Attending/Attestation - Attestation I have personally seen and examined this patient.: Yes I have fully participated in the care of the patient.: Yes I have reviewed all pertinent clinical information, including history, physical exam and plan: Yes
== END 2018-07-31 19:04 | disposition home or self-care (01) | DRG 945 ==
LOC: TRCU 21:27
PROVIDERS: ADMIT Internal Medicine; ATTEND Internal Medicine
PROC: F07Z9FZ Gait Training/Functional Ambulation Treatment using Assistive, Adaptive, Supportive or Protective Equipment (ICD-10-PCS; principal; 2018-07-26)
PROC: F08Z4FZ Home Management Treatment using Assistive, Adaptive, Supportive or Protective Equipment (ICD-10-PCS; 2018-07-26)
PROC: 3E0F7GC Introduction of Other Therapeutic Substance into Respiratory Tract, Via Natural or Artificial Opening (ICD-10-PCS; 2018-07-26)
DX: R53.1 Weakness (principal); D68.51 Activated protein C resistance; D68.59 Other primary thrombophilia; K59.00 Constipation, unspecified; J44.9 Chronic obstructive pulmonary disease, unspecified; I27.20 Pulmonary hypertension, unspecified; I12.9 Hypertensive chronic kidney disease with stage 1 through stage 4 chronic kidney disease, or unspecified chronic kidney disease; N18.9 Chronic kidney disease, unspecified; E11.21 Type 2 diabetes mellitus with diabetic nephropathy; E11.22 Type 2 diabetes mellitus with diabetic chronic kidney disease; E78.5 Hyperlipidemia, unspecified; E66.9 Obesity, unspecified; Z68.28 Body mass index [BMI] 28.0-28.9, adult; E78.00 Pure hypercholesterolemia, unspecified; F17.210 Nicotine dependence, cigarettes, uncomplicated; Z86.711 Personal history of pulmonary embolism; Z86.718 Personal history of other venous thrombosis and embolism; Z79.01 Long term (current) use of anticoagulants; Z91.19 Patient's noncompliance with other medical treatment and regimen; Z95.828 Presence of other vascular implants and grafts; Z79.84 Long term (current) use of oral hypoglycemic drugs